=== PATIENT | female | born 1970 ===

== ENCOUNTER 2017-08-04 12:22 | Emergency (ER) | payer MEDICARE, OTHER ==
[2017-08-04 12:22] VITALS: BMI 33.2
[2017-08-04 13:02] VITALS: RESP 18; TEMP 98.2; O2SAT 99
[2017-08-04] MEDS ORDERED: DiphenhydrAMINE 50 mg/ml Inj IVP STA (13:27)
[2017-08-04] MEDS ORDERED: Promethazine 25 MG in Sodium Chloride 0.9% 50 ML IVPB STA (13:28)
--- NOTE | 2017-08-04 13:30 | ED PDOC ---
HPI: Headache Time Seen by Provider: 08/04/17 13:04 Chief Complaint (Nursing): Headache Chief Complaint (Provider): MCGUIRE History Per: Patient History/Exam Limitations: no limitations Additional Complaint(s): Pt reports frontal MCGUIRE X 1 week, constant, not relieved with Aleve and Tramadol at home. Also c/o intermittent SOB that resolves on its own. Denies fever, CP , palpitations, visual changes, nausea, vomiting, abdominal pain, paresthesias, weakness. - Risk Factors SAH Risk Factors: Neg: Sudden Onset Of Pain, Worst Headache Of Life Past Medical History Reviewed: Nursing Documentation, Vital Signs Vital Signs: Last Vital Signs Temp 98.2 F 08/04/17 12:59 Pulse 80 08/04/17 12:59 Resp 18 08/04/17 12:59 BP 144/86 08/04/17 12:59 Pulse Ox 99 08/04/17 12:59 - Medical History PMH: Anemia, HTN, Kidney Stones (passes it in urine) - Family History Family History: States: Unknown Family Hx - Social History Current smoker - smoking cessation education provided: No Alcohol: None - Home Medications Home Medications: Ambulatory Orders Medication Instructions Recorded Amlodipine Besylate/Benazepril 1 cap PO DAILY 10/13/15 [Lotrel 10-20 mg Capsule] Ciprofloxacin/Dexamethasone 4 drop AU BID 10/13/15 [Ciprodex Otic] Desvenlafaxine Succinate [Pristiq 50 mg PO DAILY 10/13/15 ER] Diclofenac Sodium [Voltaren] 1 appl TOP QID PRN 10/13/15 Meclizine [Meclizine*] 25 mg PO TID 10/13/15 MetFORMIN [glucoPHAGE] 1,000 mg PO BID 10/13/15 Naproxen [Naprosyn] 500 mg PO Q12H PRN 10/13/15 Naproxen [Naprosyn] 500 mg PO BID PRN #15 tablet 08/04/17 - Allergies Allergies/Adverse Reactions: Allergies Allergy/AdvReac Type Severity Reaction Status Date / Time tramadol AdvReac NAUSEA Verified 09/27/15 11:31 Review of Systems Constitutional: Negative for: Fever, Chills Eyes: Negative for: Vision Change Cardiovascular: Negative for: Chest Pain, Palpitations Respiratory: Positive for: Shortness of Breath. Negative for: Cough Gastrointestinal: Negative for: Nausea, Vomiting, Abdominal Pain, Diarrhea Genitourinary Female: Negative for: Dysuria, Hematuria Musculoskeletal: Negative for: Neck Pain, Back Pain Skin: Negative for: Rash, Lesions Neurological: Positive for: Headache. Negative for: Weakness, Numbness, Incoordination, Change in Speech, Confusion, Seizures, Altered Mental Status, Dizziness Physical Exam - Reviewed Nursing Documentation Reviewed: Yes Vital Signs Reviewed: Yes - Physical Exam Appears: Positive for: Well, No Acute Distress Head Exam: Positive for: ATRAUMATIC, NORMAL INSPECTION Skin: Positive for: Normal Color, Warm, Dry Eye Exam: Positive for: Normal appearance, EOMI, PERRL Neck: Positive for: Normal, Painless ROM, Supple Cardiovascular/Chest: Positive for: Regular Rate, Rhythm Respiratory: Positive for: Normal Breath Sounds. Negative for: Rales, Rhonchi, Wheezing Gastrointestinal/Abdominal: Positive for: Normal Exam, Bowel Sounds, Soft Back: Positive for: Normal Inspection. Negative for: L CVA Tenderness, R CVA Tenderness Extremity: Positive for: Normal ROM Neurologic/Psych: Positive for: Alert, resource technician II-XII, Oriented. Negative for: Motor/Sensory Deficits, Aphasia, Facial Droop - Laboratory Results Result Diagrams: 08/04/17 13:45 08/04/17 13:45 - ECG Interpretation Of ECG: NSR @ 71, no ST-T changes. O2 Sat by Pulse Oximetry: 99 Pulse Ox Interpretation: Normal Medical Decision Making Medical Decision Makin yo female with MCGUIRE and intermittent SOB. - labs - EKG - CXR - CT head - Benadryl - Phenergan Disposition - Clinical Impression Clinical Impression: Headache - Disposition Referrals: Kulwant Chavis MD [Family Provider] - [facility] [Outside] Disposition: Routine/Home Disposition Time: 17:10 Condition: STABLE Prescriptions: Naproxen [Naprosyn] 500 mg PO BID PRN #15 tablet PRN Reason: Pain, Moderate (4-7) Instructions: Headache, Adult Forms: [facility] (Taiwanese) Print Language: STATELESS
[2017-08-04 13:50] LABS: BASO # 0.1 K/uL (0.0-0.2); BASO % 1.1 % (0.0-2.0); EOS # 0.2 K/uL (0.0-0.7); EOS % 2.2 % (0.0-4.0); HEMOGLOBIN 13.3 g/dL (12.0-16.0); LYMPH # 2.7 K/uL (1.0-4.3); LYMPH % 30.4 % (20.0-40.0); MEAN CELL VOLUME 88.8 fl (81.0-99.0); MEAN CORPUSCULAR HEMOGLOBIN 29.8 pg (27.0-31.0); MEAN CORPUSCULAR HGB CONC 33.5 g/dL (33.0-37.0); MEAN PLATELET VOLUME 9.4 fl (7.2-11.7); MONO # 0.6 K/uL (0.0-0.8); MONO % 6.7 % (0.0-10.0); NEUT # 5.3 K/uL (1.8-7.0); NEUT % 59.6 % (50.0-75.0); RBC 4.46 Mil/uL (3.80-5.20); WHITE BLOOD COUNT 8.8 K/uL (4.8-10.8)
[2017-08-04 13:59] LABS: ALB/GLOB RATIO 1.1 (1.0-2.1); ALBUMIN 4.1 g/dL (3.5-5.0); ALT/SGPT 30 U/L (9-52); AST/SGOT 15 U/L (14-36); BLOOD UREA NITROGEN 16 mg/dl (7-17); CALCIUM 9.5 mg/dL (8.4-10.2); GFR AFRICAN-AMERICAN > 60; GFR NON-AFRICAN AMERICAN > 60
[2017-08-04] MEDS ORDERED: DiphenhydrAMINE 50 mg/ml Inj ONE (14:00)
[2017-08-04 14:01] LABS: PROTHROMBIN TIME 11.2 Seconds (9.8-13.1)
[2017-08-04 14:02] LABS: PARTIAL THROMBOPLASTIN TIME 24.6 Seconds (25.6-37.1)
[2017-08-04 14:04] LABS: SQUAMOUS EPITHIAL 3 /hpf (0-5); URINE BACTERIA FEW (<OCC); URINE BILIRUBIN NEGATIVE (NEGATIVE); URINE BLOOD NEGATIVE (NEGATIVE); URINE CLARITY CLOUDY (Clear); URINE COLOR YELLOW (YELLOW); URINE GLUCOSE (UA) NEG (Normal); URINE LEUKOCYTE ESTERASE TRACE Leu/uL (Negative); URINE PROTEIN NEGATIVE (NEGATIVE); URINE UROBILINOGEN 0.2-1.0 mg/dL (0.2-1.0)
--- NOTE | 2017-08-04 14:11 | RAD ---
HISTORY: SOB COMPARISON: Chest radiograph dated 11/11/2008. TECHNIQUE: Chest PA and lateral FINDINGS: LUNGS: No active pulmonary disease. PLEURA: No significant pleural effusion identified. No pneumothorax apparent. CARDIOVASCULAR: Normal. OSSEOUS STRUCTURES: No significant abnormalities. VISUALIZED UPPER ABDOMEN: Normal. OTHER FINDINGS: None. IMPRESSION: No active disease.
--- NOTE | 2017-08-04 15:58 | CT ---
PROCEDURE: CT HEAD WITHOUT CONTRAST. HISTORY: MCGUIRE COMPARISON: CT head dated 10/13/2015. TECHNIQUE: Axial computed tomography images were obtained through the head/brain without intravenous contrast. Radiation dose: Total exam DLP = 813.9 mGy-cm. This CT exam was performed using one or more of the following dose reduction techniques: Automated exposure control, adjustment of the mA and/or kV according to patient size, and/or use of iterative reconstruction technique. FINDINGS: HEMORRHAGE: No intracranial hemorrhage. BRAIN: No mass effect or edema. No atrophy or chronic microvascular ischemic changes. VENTRICLES: Unremarkable. No hydrocephalus. CALVARIUM: Unremarkable. PARANASAL SINUSES: Unremarkable as visualized. No significant inflammatory changes. MASTOID AIR CELLS: Unremarkable as visualized. No inflammatory changes. OTHER FINDINGS: None. IMPRESSION: No acute intracranial pathology.
[2017-08-04 17:38] VITALS: BP 137/80; PULSE 78
--- NOTE | 2017-08-05 10:25 | CARD ---
APPROVED REPORT EKG Measurement Heart [id number] <Conclusion> Normal sinus rhythm Normal ECG
== END 2017-08-04 17:30 | disposition home or self-care (01) ==
LOC: H.ER 12:22
DX: R51 Headache (principal); N39.0 Urinary tract infection, site not specified; I10 Essential (primary) hypertension; Z79.84 Long term (current) use of oral hypoglycemic drugs; Z87.442 Personal history of urinary calculi
CPT/HCPCS: 70450; 71046; 80053; 81003; 81025; 85025; 85378; 85610; 85730; 87086; 87181; 93005; 96365; 96375; 99285; J1200; J2550

== ENCOUNTER 2018-06-07 16:58 | Inpatient (IN) | payer MEDICARE, OTHER ==
[2018-06-07 16:58] VITALS: BMI 33.2
--- NOTE | 2018-06-07 18:20 | ED PDOC ---
HPI: Abdomen Chief Complaint (Provider): abdominal pain, burning with urination History Per: Patient Onset/Duration Of Symptoms: Days (2 weeks) Outside of [place] travel?: Yes Other Location:: [facility] Current Symptoms Are (Timing): Still Present Pain Scale Rating Of: 7 Location Of Pain/Discomfort: LLQ Quality Of Discomfort: Sharp, Cramping, "Pain" Associated Symptoms: Fever, Chills, Nausea, Loss Of Appetite, Constipation. denies: Vomiting, Diarrhea Exacerbating Factors: None Additional Complaint(s): 47 yo F with history of HTN, DM2, colitis, presenting to ED for evaluation of abdominal pain. Pain started about 10-14 days ago but has gotten worse since the past few days. She also reports increased frequency of urination and burning with urination. She returned from a trip to [place] last week, and reports she went to her PMD Dr. Chavis 4 days ago, who started her on Cipro and Flagyl for a suspected colitis, but medications have not been helpful in alleviating her symptoms. Associated symptoms: subjective fever last week, nausea, constipation; no vomiting. Denies shortness of breath, chest pain, epigastric pain. Pt was sent by her PMD to get bloodwork done, as well as urine culture and CT scan of abdomen and pelvis; results are currently available in visits from 06/04 and 06/07 in [facility]. URINE culture from 06/04 positive for ES[address] E. coli CT Abd/Pelvis Impression 06/07/18: Gastric bypass surgery. No evidence dehiscence. No obstruction. No hiatal hernia. Mural thickening of a segment of jejunum in the left abdomen common nonspecific. There is some fluid or stranding adjacent to this loop of jejunum raising suspicion of an infectious or inflammatory process. There is no generalized enteritis. No other acute abnormality. Also reported in CT: 1.7 cm left sided ovarian cyst. Past Med hx: HTN, DM2 (A1c done 06/04/18 8.0), colitis, nephrolithiasis Past Surg hx: gastric bypass, hysterectomy Social: denies tobacco alcohol drugs Fam hx: noncontributory Allergies: nkda (tramadol listed but denies allergy, takes tramadol) Meds: Amlodipine 10 mg daily Benazepril 40 mg daily Tramadol 50 mg Q6 PRN; patient has listed allergy in EMR but denies allergic reactions, states it makes her nauseous sometimes Metformin 1000 BID (has not taken in 3 days in anticipation of CT scan today) Recently started cipro and flagyl this week Abnormal Vaginal Bleeding: No <Lisy Mejia - Last Filed: 06/07/18 18:54> <Ever Holt - Last Filed: 06/08/18 10:59> Time Seen by Provider: 06/07/18 17:45 Chief Complaint (Nursing): Abdominal Pain Supervising Attending Note - Supervising Attending Note The Documented history was done by the: Physician Assistant Business Manager, Attending Physician The documented physical exam was done by the: Physician Assistant Business Manager, Attending Physician The documented procedures were done by the: Physician Assistant Business Manager, Attending Physician - Attestation: I have personally seen and examined this patient.: Yes I have fully participated in the care of the patient.: Yes I have reviewed all pertinent clinical information: Yes <Ever Holt - Last Filed: 06/08/18 10:59> Past Medical History Vital Signs: Last Vital Signs Temp 98.6 F 06/07/18 17:16 Pulse 71 06/07/18 17:16 Resp 18 06/07/18 17:16 BP 127/82 06/07/18 17:16 Pulse Ox 100 06/07/18 17:16 - Medical History PMH: Anemia, HTN, Kidney Stones Other PMH: colitis - Surgical History Other surgeries: gastric bypass; hysterectomy - Family History Family History: States: Unknown Family Hx - Social History Alcohol: None Drugs: Denies <Lisy Mejia - Last Filed: 06/07/18 18:54> Reviewed: Historical Data, Nursing Documentation, Vital Signs Vital Signs: Last Vital Signs Temp 98.5 F 06/08/18 10:08 Pulse 74 06/08/18 10:08 Resp 14 06/08/18 10:08 BP 105/69 06/08/18 10:08 Pulse Ox 100 06/08/18 10:05 <Ever Holt - Last Filed: 06/08/18 10:59> - Home Medications Home Medications: Ambulatory Orders Medication Instructions Recorded RX: MetFORMIN [glucoPHAGE] 1,000 mg PO BID 10/13/15 Benazepril HCl [Lotensin] 40 mg PO DAILY 06/07/18 Ciprofloxacin [Cipro] 500 mg PO BID 06/07/18 RX: Metronidazole 500 mg PO Q8 06/07/18 RX: amLODIPine [Norvasc] 10 mg PO DAILY 06/07/18 Tramadol HCl [Ultram] 50 mg PO Q6 06/07/18 - Allergies Allergies/Adverse Reactions: Allergies Allergy/AdvReac Type Severity Reaction Status Date / Time tramadol AdvReac NAUSEA Verified 06/07/18 17:23 Review of Systems Cardiovascular: Negative for: Chest Pain Respiratory: Negative for: Cough, Shortness of Breath Gastrointestinal: Positive for: Nausea, Abdominal Pain, Constipation. Negative for: Vomiting, Diarrhea Genitourinary Female: Positive for: Dysuria, Frequency, Pelvic Pain <Lisy Mejia - Last Filed: 06/07/18 18:54> ROS Statement: Except As Marked, All Systems Reviewed And Found Negative <Ever Holt - Last Filed: 06/08/18 10:59> Physical Exam - Physical Exam Appears: Positive for: Non-toxic Head Exam: Positive for: ATRAUMATIC, NORMAL INSPECTION Skin: Positive for: Normal Color, Warm, Dry Eye Exam: Positive for: Normal appearance, EOMI Neck: Positive for: Painless ROM Cardiovascular/Chest: Positive for: Regular Rate, Rhythm. Negative for: Murmur Respiratory: Positive for: Normal Breath Sounds. Negative for: Respiratory Distress Gastrointestinal/Abdominal: Positive for: Bowel Sounds, Soft, Tenderness (LLQ and suprapubic) Back: Positive for: Normal Inspection Extremity: Positive for: Normal ROM. Negative for: Deformity Neurologic/Psych: Positive for: Alert, Oriented <Lisy Mejia - Last Filed: 06/07/18 18:54> - Reviewed Nursing Documentation Reviewed: Yes Vital Signs Reviewed: Yes <Ever Holt - Last Filed: 06/08/18 10:59> - Laboratory Results Result Diagrams: 06/07/18 18:22 - ECG O2 Sat by Pulse Oximetry: 100 <Lsiy Mejia - Last Filed: 06/07/18 18:54> - Laboratory Results Result Diagrams: 06/07/18 18:22 06/07/18 18:22 Lab Results: Total Bilirubin 0.2 mg/dl (0.2-1.3) 06/07/18 18:22 AST 20 U/L (14-36) 06/07/18 18:22 ALT 21 U/L (9-52) 06/07/18 18:22 Alkaline Phosphatase 69 U/L (38-126) 06/07/18 18:22 Total Protein 8.1 G/DL (6.3-8.2) 06/07/18 18:22 Albumin 4.6 g/dL (3.5-5.0) 06/07/18 18:22 Globulin 3.5 gm/dL (2.2-3.9) 06/07/18 18:22 Albumin/Globulin Ratio 1.3 (1.0-2.1) 06/07/18 18:22 <Ever Holt - Last Filed: 06/08/18 10:59> Medical Decision Making Medical Decision Makin yo F with hx HTN, DM2, colitis, with LLQ and suprabupic abdominal pain, with ESBL E. coli UTI from urine culture 06/04/18 and L sided ovarian cyst. CBC, CMP, Urine culture done on 06/04 Plan - Repeat CBC - Repeat CMP - Repeat urine culture, Udip - Blood cultures x2 - Transvaginal u/s - Meropenem 1 dose - ID consult Pt to be admitted to hospitalist service; spoke w/ Dr. Aguirre for admission. All above discussed w/ Dr. Holt. <Lisy Mejia - Last Filed: 06/07/18 18:54> Disposition - Patient ED Disposition Is Patient to be Admitted: Yes - Disposition Disposition Time: 18:49 <Lisy Mejia - Last Filed: 06/07/18 18:54> Discussed With : Funmilayo Aguirre Doctor Will See Patient In The: Hospital Counseled Patient/Family Regarding: Studies Performed, Diagnosis - Pt Status Changed To: Hospital Disposition Of: Inpatient - Admit Certification Admit to Inpatient:: After my assessment, the patient will require hospital ization for at least two midnights. This is because of the severity of symptoms shown, intensity of services needed, and/or the medical risk in this patient being treated as an outpatient. - POA Present On Arrival: None <Ever Holt - Last Filed: 06/08/18 10:59> - Clinical Impression Clinical Impression: UTI (urinary tract infection), UTI due to extended-spectrum beta lactamase (ESBL) producing Escherichia coli - Disposition Condition: STABLE
[2018-06-07] MEDS ORDERED: Meropenem 1 GM in Sodium Chloride 0.9% 100 ML IVPB ONE (18:24)
[2018-06-07 18:30] LABS: BASO # 0.1 K/uL (0.0-0.2); EOS # 0.2 K/uL (0.0-0.7); EOS % 2.9 % (0.0-4.0); HEMOGLOBIN 12.9 g/dL (12.0-16.0); LYMPH # 2.6 K/uL (1.0-4.3); LYMPH % 39.9 % (20.0-40.0); MEAN CELL VOLUME 86.4 fl (81.0-99.0); MEAN CORPUSCULAR HGB CONC 32.4 g/dL (33.0-37.0); MEAN PLATELET VOLUME 9.6 fl (7.2-11.7); MONO # 0.4 K/uL (0.0-0.8); MONO % 5.9 % (0.0-10.0); NEUT # 3.3 K/uL (1.8-7.0); NEUT % 50.3 % (50.0-75.0); RBC 4.59 Mil/uL (3.80-5.20); RED CELL DISTRIBUTION WIDTH 14.1 % (11.5-14.5); WHITE BLOOD COUNT 6.6 K/uL (4.8-10.8)
[2018-06-07 18:53] LABS: ALB/GLOB RATIO 1.3 (1.0-2.1); ALBUMIN 4.6 g/dL (3.5-5.0); ALT/SGPT 21 U/L (9-52); AST/SGOT 20 U/L (14-36); BLOOD UREA NITROGEN 18 mg/dl (7-17); CALCIUM 9.8 mg/dL (8.4-10.2); GFR NON-AFRICAN AMERICAN > 60
--- NOTE | 2018-06-07 18:55 | US ---
Date of service: 06/07/2018 HISTORY: LLQ pain, left sided ovarian cyst Relevant surgical history: Prior hysterectomy approximately 2 years ago. COMPARISON: 08/18/2017. TECHNIQUE: Transvaginal only. Real -time technique with 2D, duplex and color Doppler FINDINGS: Prior hysterectomy, no uterine remnant detected. CERVIX: No cervical abnormality identified. RIGHT OVARY: Measures 1.7 x 2.2 x 2.2 cm. No solid mass. Normal flow. LEFT OVARY: Measures 1.9 x 2.9 x 2.7 cm. No solid mass. Normal flow. Simple cyst 1.2 x 1.9 x 1.7 cm FREE FLUID: No significant free fluid noted. OTHER FINDINGS: None. IMPRESSION: Status post hysterectomy. Unremarkable right adnexa. Simple cyst left adnexa.
--- NOTE | 2018-06-07 19:57 | CP.PCM.HP ---
<Mary Hampton - Last Filed: 06/07/18 22:41> History of Present Illness - History of Present Illness History of Present Illness: 47 yo F with history of HTN, DM2, colitis, presenting to ED for evaluation of abdominal pain. Pain started about 10-14 days ago but has gotten worse since the past few days. She also reports increased frequency of urination and burning with urination x 2 weeks. She returned from a trip to [place] last week, and reports she went to her PMD Dr. Chavis 4 days ago, who started her on Cipro and Flagyl for a suspected colitis, but medications have not been helpful in alleviating her symptoms. Associated symptoms: subjective fever last week, and nausea; no vomiting. Denies shortness of breath, chest pain, epigastric pain. ROS: + Constipation, + Rectal pain, last BM 4 days ago Pt was sent by her PMD to get bloodwork done, as well as urine culture and CT scan of abdomen and pelvis; results are currently available in [facility]. URINE culture from 06/[address] positive [address] CT Abd/Pelvis Impression 06/07/18: Gastric bypass surgery. No evidence dehiscence. No obstruction. No hiatal hernia. Mural thickening of a segment of jejunum in the left abdomen common nonspecific. There is some fluid or stranding adjacent to this loop of jejunum raising suspicion of an infectious or inflammatory process. There is no generalized enteritis. No other acute abnormality. Also reported in CT: 1.7 cm left sided ovarian cyst. Past Med hx: HTN, DM2 (A1c done 06/04/18 8.0), colitis, nephrolithiasis Past Surg hx: gastric bypass, hysterectomy Social: denies tobacco alcohol drugs Fam hx: noncontributory Allergies: nkda (tramadol listed but denies allergy, takes tramadol) Meds: Amlodipine 10 mg daily Benazepril 40 mg daily Tramadol 50 mg Q6 PRN; patient has listed allergy in EMR but denies allergic reactions, states it makes her nauseous sometimes Metformin 1000 BID (has not taken in 3 days in anticipation of CT scan today) Recently started cipro and flagyl this week Present on Admission - Present on Admission Any Indicators Present on Admission: No Past Patient History - Past Medical History & Family History Past Medical History?: Yes - Past Social History Alcohol: None Drugs: Denies - CARDIAC Hx Hypertension: Yes - NEUROLOGICAL Hx Vertigo: Yes - RENAL Hx Kidney Stones: Yes - ENDOCRINE/METABOLIC Hx Diabetes Mellitus Type 2: Yes - HEMATOLOGICAL/ONCOLOGICAL Hx Anemia: Yes - MUSCULOSKELETAL/RHEUMATOLOGICAL Hx Herniated Disk: Yes (Has had Lumbar Sx X2) Other/Comment: Right knee Sx -Arthroscopy due to Tendon Problems - GASTROINTESTINAL Hx Bowel Surgery: Yes (Gastric By-Pass X 2-2004, 2012) Hx Colitis: Yes Hx Diarrhea: Yes (Claims diarhea with Iron Tabs) - PSYCHIATRIC Hx Substance Use: No - SURGICAL HISTORY Hx Hysterectomy: Yes (08/28/16 [facility] [address]) - ANESTHESIA Hx Anesthesia: Yes Hx Anesthesia Reactions: No Meds Allergies/Adverse Reactions: Allergies Allergy/AdvReac Type Severity Reaction Status Date / Time tramadol AdvReac NAUSEA Verified 06/07/18 17:23 Physical Exam - Constitutional Appears: No Acute Distress - Head Exam Head Exam: NORMAL INSPECTION - Eye Exam Eye Exam: Normal appearance - ENT Exam ENT Exam: Mucous Membranes Moist - Neck Exam Neck exam: Positive for: Full Rom - Respiratory Exam Respiratory Exam: Clear to Auscultation Bilateral. absent: Rales, Wheezes - Cardiovascular Exam Cardiovascular Exam: REGULAR RHYTHM, +S1, +S2. absent: Systolic Murmur - GI/Abdominal Exam GI & Abdominal Exam: Normal Bowel Sounds, Soft, Tenderness (Left lower quadrant). absent: Distended, Guarding, Hernia, Organomegaly, Rigid - Extremities Exam Extremities exam: Positive for: normal inspection - Back Exam Back exam: absent: CVA tenderness (L), CVA tenderness (R) - Neurological Exam Neurological exam: Alert, Oriented x3 - Psychiatric Exam Psychiatric exam: Normal Affect Results - Vital Signs Recent Vital Signs: Last Vital Signs Temp 98.6 F 06/07/18 17:16 Pulse 71 06/07/18 17:16 Resp 18 06/07/18 17:16 BP 127/82 06/07/18 17:16 Pulse Ox 100 06/07/18 18:54 - Labs Result Diagrams: 06/07/18 18:22 06/07/18 18:22 Labs: Laboratory Results - last 24 hr 06/07/18 06/07/18 18:22 18:22 WBC 6.6 RBC 4.59 Hgb 12.9 Hct 39.6 MCV 86.4 MCH 28.0 MCHC 32.4 L RDW 14.1 Plt Count 325 MPV 9.6 Neut % (Auto) 50.3 Lymph % (Auto) 39.9 [place] % (Auto) 5.9 Eos % (Auto) 2.9 Baso % (Auto) 1.0 Neut # (Auto) 3.3 Lymph # (Auto) 2.6 [place] # (Auto) 0.4 Eos # (Auto) 0.2 Baso # (Auto) 0.1 Sodium 138 Potassium 4.3 Chloride 97 L Carbon Dioxide 27 Anion Gap 18 BUN 18 H Creatinine 0.8 Est GFR ( Amer) > 60 Est GFR (Non-Af Amer) > 60 Random Glucose 138 H Calcium 9.8 Total Bilirubin 0.2 AST 20 ALT 21 Alkaline Phosphatase 69 Total Protein 8.1 Albumin 4.6 Globulin 3.5 Albumin/Globulin Ratio 1.3 Assessment & Plan - Assessment and Plan (Free Text) Assessment: 47 yo F with history of HTN, DM2, "Colitis", presenting to ED for evaluation of abdominal pain, dysuria, and subjective fevers, found to have recent UCx with ESBL E.Coli. #UTI w/ ESBL E.Coli from Ucx (06/04) -No fever or leukocytosis -Received STAT dose of Meropenem in ED -Will continue Meropenem Q8 upon approval from ID -Repeat Ucx and Bcx sent -Tylenol and Torodol prn for pain -ID consulted, Dr. Rae #Constipation -Bloating w/ colicky abdominal pain, active bowel sounds on exam -Last BM 4 days ago, passing flatus, normal bowel sounds -W/ rectal pain, may be stool burden in rectum -Glycerin suppository prn. #Colitis -Pt reports long hx of "colitis" diagnosed by Colonoscopy, unclear if it is Ulcerative Colitis, states she cannot afford the medication so does not take anything -Currently does not have any diarrhea, bloody stools or concern for UC flare or infectious colitis -CT ruled out colitis, will d/c Cipro and Flagyl HTN -Normotensive -Takes Amlodipine 10mg and Benazapril 40 Benazapril at home; Will continue w/ appropriate BP parameters DM -Will hold Metformin today as pt just received IV contrast -Accuchecks ACHS -Hypoglycemic protocol -Low Insulin Sliding Scale Diet -Regular DVT ppx -SCD -Encourage Ambulation -Pharmacological ppx not indicated as per Joselin score Discussed case with Dr. Timothy Hampton, PGY2 <Funmilayo Aguirre - Last Filed: 06/09/18 15:28> Results - Vital Signs Recent Vital Signs: Last Vital Signs Temp 98.4 F 06/09/18 12:49 Pulse 71 06/09/18 14:18 Resp 20 06/09/18 12:49 BP 103/68 06/09/18 14:18 Pulse Ox 96 06/09/18 12:49 - Labs Result Diagrams: 06/09/18 04:30 06/09/18 04:30 Labs: Laboratory Results - last 24 hr 06/08/18 06/09/18 06/09/18 21:43 04:30 04:30 WBC 5.4 RBC 4.17 Hgb 11.9 L Hct 35.7 MCV 85.6 MCH 28.5 MCHC 33.3 RDW 14.8 H Plt Count 290 Sodium 140 Potassium 4.3 Chloride 102 Carbon Dioxide 26 Anion Gap 16 BUN 22 H Creatinine 0.8 Est GFR ( Amer) > 60 Est GFR (Non-Af Amer) > 60 POC Glucose (mg/dL) 111 H Random Glucose 148 H Calcium 8.8 06/09/18 06/09/18 06:18 11:37 WBC RBC Hgb Hct MCV MCH MCHC RDW Plt Count Sodium Potassium Chloride Carbon Dioxide Anion Gap BUN Creatinine Est GFR ( Amer) Est GFR (Non-Af Amer) POC Glucose (mg/dL) 206 H 137 H Random Glucose Calcium Attending/Attestation - Attestation I have personally seen and examined this patient.: Yes I have fully participated in the care of the patient.: Yes I have reviewed all pertinent clinical information: Yes Notes (Text): 06/09/18 15:27 Agree with findings and plan as above.
[2018-06-07] MEDS ORDERED: Morphine 4 MG/ML VIAL IVP ONE (22:03)
[2018-06-07] MEDS ORDERED: Morphine 4 MG/ML VIAL ONE (22:11)
[2018-06-07] MEDS ORDERED: Glucagon Recombinant 1 mg Inj IM PRN (23:38)
[2018-06-07] MEDS ORDERED: Dextrose 50% SYRINGE Inj (50 ml) IV PRN (23:38)
[2018-06-08] MEDS ORDERED: Meropenem 1 GM in Sodium Chloride 0.9% 100 ML IVPB ONE (05:56)
[2018-06-08] MEDS ORDERED: POLYETHYLENE GLYCOL 3350 17 GM/Dose PACKET PO ONE (08:25)
[2018-06-08] MEDS: Insulin Regular 100 units/ml SC SCH ×4 (08:30→22:15)
[2018-06-08] MEDS ORDERED: BENAZEPRIL HCL 40 MG PO SCH (09:00)
--- NOTE | 2018-06-08 13:09 | CP.PCM.PN ---
Subjective - Date & Time of Evaluation Date of Evaluation: 06/08/18 Time of Evaluation: 10:30 - Subjective Subjective: Pt is afebrile complains of left lower abdominal pain sl dysuria denies nausea + constipation no CP no SOB Objective - Vital Signs/Intake and Output Vital Signs (last 24 hours): Temp Pulse Resp BP Pulse Ox 98.5 F 68 16 113/57 L 98 06/08/18 10:08 06/08/18 10:55 06/08/18 10:55 06/08/18 10:55 06/08/18 10:55 - Medications Medications: Current Medications Acetaminophen (Tylenol 325mg Tab) 650 mg PO Q6 PRN PRN Reason: Pain, Mild (1-3) Amlodipine Besylate (Norvasc) 10 mg PO DAILY [facility] Last Admin: 06/08/18 09:30 Dose: 10 mg Dextrose (Dextrose 50% Inj) 0 ml IV STAT PRN; Protocol PRN Reason: Hypoglycemia Protocol Dextrose (Glutose 15) 0 gm PO ONCE PRN; Protocol PRN Reason: Hypoglycemia Protocol Docusate Sodium (Colace) 100 mg PO BID [facility] Last Admin: 06/08/18 10:49 Dose: 100 mg Glucagon (Glucagen Diagnostic Kit) 0 mg IM STAT PRN; Protocol PRN Reason: Hypoglycemia Protocol Insulin Human Regular (Humulin R) 0 units SC [facility]; Protocol Last Admin: 06/08/18 12:00 Dose: Not Given Ketorolac Tromethamine (Toradol) 30 mg IVP Q6 PRN PRN Reason: Pain, severe (8-10) Last Admin: 06/07/18 20:47 Dose: 30 mg Ketorolac Tromethamine (Toradol) 15 mg IVP Q6 PRN PRN Reason: Pain, moderate (4-7) Last Admin: 06/08/18 09:55 Dose: 15 mg Lisinopril (Zestril) 40 mg PO DAILY [facility] Last Admin: 06/08/18 09:54 Dose: 40 mg - Labs Labs: 06/07/18 18:22 06/07/18 18:22 - Constitutional Appears: Non-toxic, No Acute Distress - Head Exam Head Exam: ATRAUMATIC, NORMAL INSPECTION, NORMOCEPHALIC - Eye Exam Eye Exam: EOMI, Normal appearance, PERRL Pupil Exam: NORMAL ACCOMODATION - ENT Exam ENT Exam: Mucous Membranes Moist, Normal External Ear Exam - Neck Exam Neck Exam: Full ROM. absent: Meningismus - Respiratory Exam Respiratory Exam: NORMAL BREATHING PATTERN. absent: Respiratory Distress - Cardiovascular Exam Cardiovascular Exam: REGULAR RHYTHM, +S1, +S2 - GI/Abdominal Exam GI & Abdominal Exam: Soft, Tenderness (left lower quadrant), Normal Bowel Sounds - Extremities Exam Extremities Exam: Full ROM, Normal Capillary Refill, Normal Inspection - Back Exam Back Exam: Full ROM. absent: CVA tenderness (L), CVA tenderness (R) - Neurological Exam Neurological Exam: Alert, Awake, CN II-XII Intact, Oriented x3 Neuro motor strength exam: Left Upper Extremity: 5, Right Upper Extremity: 5, Left Lower Extremity: 5, Right Lower Extremity: 5 - Psychiatric Exam Psychiatric exam: Normal Affect, Normal Mood - Skin Skin Exam: Dry, Normal Color, Warm Assessment and Plan (1) UTI due to extended-spectrum beta lactamase (ESBL) producing Escherichia coli Status: Acute (2) Colitis Status: Acute (3) Constipation Status: Chronic (4) DM type 2 (diabetes mellitus, type 2) Status: Chronic (5) HTN (hypertension) Status: Chronic - Assessment and Plan (Free Text) Assessment: (1) UTI due to extended-spectrum beta lactamase (ESBL) producing Escherichia coli Status: Acute start Meropenem ID consult may need Home IV Infusion to complete treatment (2) Colitis Status: Acute CT scan of abd done on 06/04 showed stranding at the jejunum area cont Meropenem, add PO Flagyl (3) Constipation Status: Chronic Dulcolax Miralax (4) DM type 2 (diabetes mellitus, type 2) Status: Chronic Accucheck with coverage restart Metformin in am (5) HTN (hypertension) Status: Chronic cont Norvasc and Lisinopril
[2018-06-08] MEDS: Meropenem 1 GM in Sodium Chloride 0.9% 100 ML IVPB SCH (17:47)
[2018-06-09] MEDS: Meropenem 1 GM in Sodium Chloride 0.9% 100 ML IVPB SCH ×3 (00:13→16:41)
[2018-06-09 06:15] LABS: HEMOGLOBIN 11.9 g/dL (12.0-16.0); MEAN CELL VOLUME 85.6 fl (81.0-99.0); MEAN CORPUSCULAR HEMOGLOBIN 28.5 pg (27.0-31.0); MEAN CORPUSCULAR HGB CONC 33.3 g/dL (33.0-37.0); RBC 4.17 Mil/uL (3.80-5.20); RED CELL DISTRIBUTION WIDTH 14.8 % (11.5-14.5); WHITE BLOOD COUNT 5.4 K/uL (4.8-10.8)
[2018-06-09 06:32] LABS: BLOOD UREA NITROGEN 22 mg/dl (7-17); CALCIUM 8.8 mg/dL (8.4-10.2); GFR NON-AFRICAN AMERICAN > 60
[2018-06-09] MEDS: Insulin Regular 100 units/ml SC SCH ×4 (06:42→22:03)
--- NOTE | 2018-06-09 11:09 | CP.PCM.PN ---
Subjective - Date & Time of Evaluation Date of Evaluation: 06/09/18 Time of Evaluation: 11:07 - Subjective Subjective: patient complaining of same LLQ pain this AM also reports constipation mild tenderness on exam will give bowel regimen and reeval hd stable nad Objective - Vital Signs/Intake and Output Vital Signs (last 24 hours): Temp Pulse Resp BP Pulse Ox 98.5 F 98 H 20 102/66 94 L 06/09/18 08:44 06/09/18 09:23 06/09/18 08:44 06/09/18 09:23 06/09/18 08:44 - Medications Medications: Current Medications Acetaminophen (Tylenol 325mg Tab) 650 mg PO Q6 PRN PRN Reason: Pain, Mild (1-3) Amlodipine Besylate (Norvasc) 10 mg PO DAILY [facility] Last Admin: 06/08/18 09:30 Dose: 10 mg Dextrose (Dextrose 50% Inj) 0 ml IV STAT PRN; Protocol PRN Reason: Hypoglycemia Protocol Dextrose (Glutose 15) 0 gm PO ONCE PRN; Protocol PRN Reason: Hypoglycemia Protocol Docusate Sodium (Colace) 100 mg PO BID [facility] Last Admin: 06/09/18 09:11 Dose: 100 mg Glucagon (Glucagen Diagnostic Kit) 0 mg IM STAT PRN; Protocol PRN Reason: Hypoglycemia Protocol Meropenem 1 gm/ Sodium (Chloride) 100 mls @ 100 mls/hr IVPB Q8 [facility]; Protocol Last Admin: 06/09/18 09:12 Dose: 100 mls/hr Insulin Human Regular (Humulin R) 0 units SC ACHS [facility]; Protocol Last Admin: 06/09/18 06:42 Dose: 2 u Ketorolac Tromethamine (Toradol) 30 mg IVP Q6 PRN PRN Reason: Pain, severe (8-10) Last Admin: 06/08/18 22:19 Dose: 30 mg Ketorolac Tromethamine (Toradol) 15 mg IVP Q6 PRN PRN Reason: Pain, moderate (4-7) Last Admin: 06/09/18 09:28 Dose: 15 mg Lactulose (Enulose) 20 gm PO DAILY [facility] Last Admin: 06/09/18 10:34 Dose: 20 gm Lisinopril (Zestril) 20 mg PO DAILY [facility] Last Admin: 06/09/18 09:23 Dose: 20 mg Metronidazole (Flagyl) 500 mg PO Q8 [facility]; Protocol Last Admin: 06/09/18 09:11 Dose: 500 mg - Labs Labs: 06/09/18 04:30 06/09/18 04:30 - Constitutional Appears: Non-toxic, No Acute Distress - Head Exam Head Exam: ATRAUMATIC, NORMOCEPHALIC - Eye Exam Eye Exam: EOMI, Normal appearance, PERRL - ENT Exam ENT Exam: Mucous Membranes Moist, Normal Oropharynx - Neck Exam Neck Exam: Full ROM, Normal Inspection - Respiratory Exam Respiratory Exam: Clear to Ausculation Bilateral, NORMAL BREATHING PATTERN - Cardiovascular Exam Cardiovascular Exam: RRR, +S1, +S2 - GI/Abdominal Exam GI & Abdominal Exam: Soft, Tenderness (mild), Normal Bowel Sounds. absent: Organomegaly - Extremities Exam Extremities Exam: Full ROM, Normal Capillary Refill, Normal Inspection - Back Exam Back Exam: absent: CVA tenderness (L), CVA tenderness (R) - Neurological Exam Neurological Exam: Alert, Awake - Psychiatric Exam Psychiatric exam: Normal Affect, Normal Mood - Skin Skin Exam: Dry, Warm Assessment and Plan - Assessment and Plan (Free Text) Plan: 47 year old female PMH HTN DM2 colitis admitted for IV ABX Merrem for ESBL UTI. Patient currently stable, with constipation. (1) UTI due to extended-spectrum beta lactamase (ESBL) producing Escherichia coli Status: Acute start Meropenem ID consult may need Home IV Infusion to complete treatment (2) Colitis Status: Acute CT scan of abd done on 06/04 showed stranding at the jejunum area cont Meropenem, added PO Flagyl (3) Constipation Status: Chronic Dulcolax Miralax added Lactulose still no BM, will give additional lactulose and monitor. (4) DM type 2 (diabetes mellitus, type 2) Status: Chronic Accucheck with coverage restart Metformin (5) HTN (hypertension) Status: Chronic cont Norvasc and Lisinopril
--- NOTE | 2018-06-09 15:54 | CP.PCM.CON ---
History of Present Illness - History of Present Illness History of Present Illness: 47 yo F with history of HTN, DM2, colitis, presenting to ED for evaluation of abdominal pain. Pain started about 10-14 days ago She also reports increased frequency of urination and burning with urination x 2 weeks. She returned from a trip to [place] last week, and reports she went to her PMD Dr. Chavis 4 days ago, who started her on Cipro and Flagyl for a suspected colitis, but medications have not been helpful in alleviating her symptoms. URINE culture from 06/04 positive for ESBL E. coli ID consulted because of this Past Med hx: HTN, DM2 (A1c done 06/04/18 8.0), colitis, nephrolithiasis Past Surg hx: gastric bypass, hysterectomy Social: denies tobacco alcohol drugs Fam hx: noncontributory Allergies: nkda Review of Systems - Review of Systems All systems: reviewed and no additional remarkable complaints except - Constitutional Constitutional: As Per HPI - EENT Eyes: absent: As Per HPI, Blind Spots, Blurred Vision, Change in Vision, Decreased Night Vision, Diplopia, Discharge, Dry Eye, Exophthalmos, Floaters, Irritation, Itchy Eyes, Loss of Peripheral Vision, Pain, Photophobia, Requires Corrective Lenses, Sees Flashes, Spots in Vision, Tunnel Vision, Other Visual Disturbances, Loss of Vision, Other Ears: absent: As Per HPI, Decreased Hearing, Ear Discharge, Ear Pain, Tinnitus, Abnormal Hearing, Disequilibrium, Dizziness, Other Nose/Mouth/Throat: absent: As Per HPI, Epistaxis, Nasal Congestion, Nasal Discharge, Nasal Obstruction, Nasal Trauma, Nose Pain, Post Nasal Drip, Sinus Pain, Sinus Pressure, Bleeding Gums, Change in Voice, Dental Pain, Dry Mouth, Dysphagia, Halitosis, Hoarsness, Lip Swelling, Mouth Lesions, Mouth Pain, Odynophagia, Sore Throat, Throat Swelling, Tongue Swelling, Facial Pain, Neck Pain, Neck Mass, Other - Breasts Breasts: absent: As Per HPI, Change in Shape, Mass, Pain, Nipple Discharge, Nipple Inversion, Skin Changes, Swelling, Other - Cardiovascular Cardiovascular: absent: As Per HPI, Acrocyanosis, Chest Pain, Chest Pain at Rest, Chest Pain with Activity, Claudication, Diaphoresis, Dyspnea, Dyspnea on Exertion, Edema, Irregular Heart Rhythm, Pain Radiating to Arm/Neck/Jaw, Leg Mars ma, Leg Ulcers, Lightheadedness, Orthopnea, Palpitations, Paroxysmal Nocturnal Dyspnea, Pedal Edema, Radiating Pain, Rapid Heart Rate, Slow Heart Rate, Syncope, Other - Respiratory Respiratory: absent: As Per HPI, Cough, Dyspnea, Hemoptysis, Dyspnea on Exertion , Wheezing, Snoring, Stridor, Pain on Inspiration, Chest Congestion, Excessive Mucous Production, Change in Mucous Color, Pain with Coughing, Other - Gastrointestinal Gastrointestinal: As Per HPI, Abdominal Pain - Genitourinary Genitourinary: As Per HPI, Urinary Frequency - Reproductive: Female Reproductive:Female: absent: As Per HPI, Amenorrhea, Amenorrhea/ Control, Currently Menstual, Cycle <21 Days, Cycle >35 Days, Cycle Variable, Menses 1-7 Days, Menses >/= 8 Days, Menses Variable, Cycle > 4 Weeks Between, No Menses for 6 Months, Heavy Menses, Light Menses, Normal Menses, Spotting Between Cycles, S/P Hysterectomy, Menopausal, Post Menopausal, Premenarche, Abnormal Vaginal Bleeding, Dysmenorrhea, Dyspareunia, Genital Lesions, Genital Pruritis, Pelvic Pain, Prolapse Symptoms, Sexual Dysfunction, Vaginal Discharge, Vaginal Dryness, Vaginal Odor, Vaginal Pruritis, Other - Menstruation Menstruation: absent: As Per HPI, Amenorrhea, Amenorrhea/ Control, Currently Menstual, Cycle <21 Days, Cycle >35 Days, Cycle Variable, Menses 1-7 Days, Menses >/= 8 Days, Menses Variable, Cycle > 4 Weeks Between, No Menses for 6 Months, Heavy Menses, Light Menses, Normal Menses, Spotting Between Cycles, S/P Hysterectomy, Menopausal, Post Menopausal, Premenarche, Abnormal Vaginal Bleeding, Dysmenorrhea, Other - Musculoskeletal Musculoskeletal: absent: As Per HPI, Abnormal Gait, Arthralgias, Atrophy, Back Pain, Deformity, Joint Swelling, Limited Range of Motion, Loss of Height, Muscle Cramps, Muscle Weakness, Myalgias, Neck Pain, Numbness, Radiating Pain into Limb, Stiffness, Tingling, Other - Integumentary Integumentary: absent: As Per HPI, Acne, Alopecia, Bleeding Lesions, Change in Hair, Change in Nails, Change in Pigmentation, Changing Lesions, Dry Skin, Erythema, Furuncle, Hirsutism, Lesions, New Lesions, Non-Healing Lesions, Photosensitivity, Pruritus, Rash, Skin Pain, Skin Ulcer, Sores, Striae, Swelling, Unusual Bruising, Wounds, Jaundice, Other - Neurological Neurological: absent: As Per HPI, Abnormal Gait, Abnormal Hearing, Abnormal Movements, Abnormal Speech, Behavioral Changes, Burning Sensations, Confusion, Convulsions, Disequilibrium, Dizziness, Numbness, Focal Weakness, Frequent Falls, Headaches, Lack of Coordination, Loss of Vision, Memory Loss, Paresthesias, Radicular Pain, Restless Legs, Sensory Deficit, Syncope, Tingling, Tremor, Vertigo, Weakness, Other Visual Disturbances, Other - Psychiatric Psychiatric: absent: As Per HPI, Abnormal Sleep Pattern, Anhedonia, Anxiety, Auditory Hallucinations, Behavioral Changes, Change in Appetite, Change in Libido, Confusion, Depression, Difficulty Concentrating, Hallucinations, Homicidal Ideation, Hopelessness, Irritability, Memory Loss, Mood Swings, Panic Attacks, Paranoia, Suicidal Ideation, Visual Hallucinations, Tactile Hallucinations, Other - Endocrine Endocrine: absent: As Per HPI, Change in Body Appearance, Change in Libido, Cold Intolorance, Deepening of Voice, Excessive Sweating, Fatigue, Flushing, Heat Intolorance, Increase in Ring/Shoe/Hat Size, Palpitations, Polydipsia, Polyphagia, Polyuria, Other - Hematologic/Lymphatic Hematologic: absent: As Per HPI, Easy Bleeding, Easy Bruising, Lymphadenopathy, Other Past Patient History - Past Medical History & Family History Past Medical History?: Yes - Past Social History Smoking Status: Never Smoked - CARDIAC Hx Cardiac Disorders: Yes Hx Hypertension: Yes - PULMONARY Hx Respiratory Disorders: Yes - NEUROLOGICAL Hx Vertigo: Yes - RENAL Hx Kidney Stones: Yes - ENDOCRINE/METABOLIC Hx Diabetes Mellitus Type 2: Yes - HEMATOLOGICAL/ONCOLOGICAL Hx Blood Disorders: Yes - MUSCULOSKELETAL/RHEUMATOLOGICAL Hx Falls: No Hx Herniated Disk: Yes (Has had Lumbar Sx X2) Other/Comment: Right knee Sx -Arthroscopy due to Tendon Problems - GASTROINTESTINAL Hx Bowel Surgery: Yes (Gastric By-Pass X 2-2004, 2012) Hx Colitis: Yes Hx Diarrhea: Yes (Claims diarhea with Iron Tabs) - GENITOURINARY/GYNECOLOGICAL Hx Genitourinary Disorders: Yes - PSYCHIATRIC Hx Substance Use: No - SURGICAL HISTORY Hx Hysterectomy: Yes (08/28/16 [facility]) - ANESTHESIA Hx Anesthesia: Yes Hx Anesthesia Reactions: No Meds Allergies/Adverse Reactions: Allergies Allergy/AdvReac Type Severity Reaction Status Date / Time tramadol AdvReac NAUSEA Verified 06/07/18 17:23 - Medications Medications: Current Medications Acetaminophen (Tylenol 325mg Tab) 650 mg PO Q6 PRN PRN Reason: Pain, Mild (1-3) Amlodipine Besylate (Norvasc) 10 mg PO DAILY [facility] Last Admin: 06/09/18 14:18 Dose: 10 mg Dextrose (Dextrose 50% Inj) 0 ml IV STAT PRN; Protocol PRN Reason: Hypoglycemia Protocol Dextrose (Glutose 15) 0 gm PO ONCE PRN; Protocol PRN Reason: Hypoglycemia Protocol Docusate Sodium (Colace) 100 mg PO BID [facility] Last Admin: 06/09/18 09:11 Dose: 100 mg Glucagon (Glucagen Diagnostic Kit) 0 mg IM STAT PRN; Protocol PRN Reason: Hypoglycemia Protocol Meropenem 1 gm/ Sodium (Chloride) 100 mls @ 100 mls/hr IVPB Q8 [facility]; Protocol Last Admin: 06/09/18 09:12 Dose: 100 mls/hr Insulin Human Regular (Humulin R) 0 units SC ACHS [facility]; Protocol Last Admin: 06/09/18 12:37 Dose: Not Given Ketorolac Tromethamine (Toradol) 30 mg IVP Q6 PRN PRN Reason: Pain, severe (8-10) Last Admin: 06/09/18 15:37 Dose: 30 mg Ketorolac Tromethamine (Toradol) 15 mg IVP Q6 PRN PRN Reason: Pain, moderate (4-7) Last Admin: 06/09/18 09:28 Dose: 15 mg Lactulose (Enulose) 20 gm PO DAILY [facility] Last Admin: 06/09/18 10:34 Dose: 20 gm Lisinopril (Zestril) 20 mg PO DAILY [facility] Last Admin: 06/09/18 09:23 Dose: 20 mg Metronidazole (Flagyl) 500 mg PO Q8 [facility]; Protocol Last Admin: 06/09/18 09:11 Dose: 500 mg Physical Exam - Constitutional Appears: Non-toxic, No Acute Distress, Chronically Ill - Head Exam Head Exam: ATRAUMATIC, NORMAL INSPECTION, NORMOCEPHALIC - Eye Exam Eye Exam: PERRL. absent: Scleral icterus Pupil Exam: NORMAL ACCOMODATION - ENT Exam ENT Exam: Mucous Membranes Dry, Normal External Ear Exam, Normal Oropharynx - Neck Exam Neck exam: Negative for: Lymphadenopathy, Thyromegaly - Respiratory Exam Respiratory Exam: Decreased Breath Sounds, Clear to Auscultation Bilateral - Cardiovascular Exam Cardiovascular Exam: REGULAR RHYTHM, +S1, +S2 - GI/Abdominal Exam GI & Abdominal Exam: Diminished Bowel Sounds, Distended, Guarding, Soft. absent: Rebound, Rigid, Tenderness - Rectal Exam Rectal Exam: Deferred - Exam Exam: NORMAL INSPECTION - Extremities Exam Extremities exam: Positive for: pedal pulses present. Negative for: calf tenderness, pedal edema, tenderness - Back Exam Back exam: CVA tenderness (L). absent: CVA tenderness (R), paraspinal tenderness - Neurological Exam Neurological exam: Alert, CN II-XII Intact, Oriented x3, Reflexes Normal - Psychiatric Exam Psychiatric exam: Depressed - Skin Skin Exam: Dry Results - Vital Signs Recent Vital Signs: Last Vital Signs Temp 98.4 F 06/09/18 12:49 Pulse 71 06/09/18 14:18 Resp 20 06/09/18 12:49 BP 103/68 06/09/18 14:18 Pulse Ox 96 06/09/18 12:49 - Labs Result Diagrams: 06/09/18 04:30 06/09/18 04:30 Labs: Laboratory Results - last 24 hr 06/08/18 06/09/18 06/09/18 21:43 04:30 04:30 WBC 5.4 RBC 4.17 Hgb 11.9 L Hct 35.7 MCV 85.6 MCH 28.5 MCHC 33.3 RDW 14.8 H Plt Count 290 Sodium 140 Potassium 4.3 Chloride 102 Carbon Dioxide 26 Anion Gap 16 BUN 22 H Creatinine 0.8 Est GFR ( Amer) > 60 Est GFR (Non-Af Amer) > 60 POC Glucose (mg/dL) 111 H Random Glucose 148 H Calcium 8.8 06/09/18 06/09/18 06:18 11:37 WBC RBC Hgb Hct MCV MCH MCHC RDW Plt Count Sodium Potassium Chloride Carbon Dioxide Anion Gap BUN Creatinine Est GFR ( Amer) Est GFR (Non-Af Amer) POC Glucose (mg/dL) 206 H 137 H Random Glucose Calcium - Imaging and Cardiology CT scan - abdomen Additional comment: CT Abd/Pelvis Impression 06/07/18: Gastric bypass surgery. No evidence dehiscence. No obstruction. No hiatal hernia. Mural thickening of a segment of jejunum in the left abdomen common nonspecific. There is some fluid or stranding adjacent to this loop of jejunum raising suspicion of an infectious or inflammatory process. There is no generalized enteritis. No other acute abnormality. Also reported in CT: 1.7 cm left sided ovarian cyst. Assessment & Plan (1) Colitis Status: Acute (2) UTI (urinary tract infection) Status: Acute (3) UTI due to extended-spectrum beta lactamase (ESBL) producing Escherichia coli Status: Acute (4) DM type 2 (diabetes mellitus, type 2) Status: Chronic (5) HTN (hypertension) Status: Chronic - Assessment and Plan (Free Text) Plan: admitted for UTI has abd pain and tenderness left side unclear if this is secondary to UTI/Pyelo or chronic colitis ? No mention of hydro or pyelo on CT images will repeat U/A duration of rx to be determined
[2018-06-09] MEDS ORDERED: Chlorhexidine Gluconate 1 APPL/PKT TP ONE (21:05)
[2018-06-09 22:35] LABS: SQUAMOUS EPITHIAL 7 /hpf (0-5); URINE BACTERIA RARE (<OCC); URINE BILIRUBIN NEGATIVE (NEGATIVE); URINE BLOOD NEGATIVE (NEGATIVE); URINE CLARITY SLIGHTY-CLOUDY (Clear); URINE COLOR YELLOW (YELLOW); URINE GLUCOSE (UA) NEG (NEGATIVE); URINE HYALINE CAST 0-2 /hpf (0-2); URINE LEUKOCYTE ESTERASE TRACE Leu/uL (Negative); URINE PROTEIN NEGATIVE (NEGATIVE)
[2018-06-10] MEDS: Meropenem 1 GM in Sodium Chloride 0.9% 100 ML IVPB SCH ×2 (01:08→09:38)
[2018-06-10] MEDS ORDERED: Simethicone 80 mg Chewtab PO ONE (01:20)
[2018-06-10] MEDS: Insulin Regular 100 units/ml SC SCH ×2 (06:40→13:02)
[2018-06-10 08:30] VITALS: RESP 20; TEMP 98.1
[2018-06-10 10:14] VITALS: O2SAT 93
[2018-06-10 11:16] VITALS: BP 116/79; PULSE 66
--- NOTE | 2018-06-10 11:37 | CP.PCM.PN ---
Subjective - Date & Time of Evaluation Date of Evaluation: 06/10/18 Time of Evaluation: 09:00 - Subjective Subjective: 47 yo F with history of HTN, DM2, colitis, presenting to ED for evaluation of abdominal pain. Pain started about 10-14 days ago She also reports increased frequency of urination and burning with urination x 2 weeks. She returned from a trip to [place] last week, and reports she went to her PMD Dr. Chavis 4 days ago, who started her on Cipro and Flagyl for a suspected colitis, but medications have not been helpful in alleviating her symptoms. URINE culture from 06/04 positive for ESBL E. coli ID consulted because of this Objective - Vital Signs/Intake and Output Vital Signs (last 24 hours): Temp Pulse Resp BP Pulse Ox 98.1 F 66 20 116/79 93 L 06/10/18 09:00 06/10/18 11:15 06/10/18 09:00 06/10/18 11:15 06/10/18 09:00 Intake and Output: 06/10/18 06/10/18 06:59 18:59 Intake Total 1060 Balance 1060 - Medications Medications: Current Medications Acetaminophen (Tylenol 325mg Tab) 650 mg PO Q6 PRN PRN Reason: Pain, Mild (1-3) Last Admin: 06/10/18 02:05 Dose: 650 mg Amlodipine Besylate (Norvasc) 10 mg PO DAILY [facility] Last Admin: 06/10/18 11:15 Dose: 10 mg Dextrose (Dextrose 50% Inj) 0 ml IV STAT PRN; Protocol PRN Reason: Hypoglycemia Protocol Dextrose (Glutose 15) 0 gm PO ONCE PRN; Protocol PRN Reason: Hypoglycemia Protocol Docusate Sodium (Colace) 100 mg PO BID [facility] Last Admin: 06/10/18 09:36 Dose: 100 mg Glucagon (Glucagen Diagnostic Kit) 0 mg IM STAT PRN; Protocol PRN Reason: Hypoglycemia Protocol Meropenem 1 gm/ Sodium (Chloride) 100 mls @ 100 mls/hr IVPB Q8 [facility]; Protocol Last Admin: 06/10/18 09:38 Dose: 100 mls/hr Insulin Human Regular (Humulin R) 0 units SC ACHS [facility]; Protocol Last Admin: 06/10/18 06:40 Dose: Not Given Ketorolac Tromethamine (Toradol) 30 mg IVP Q6 PRN PRN Reason: Pain, severe (8-10) Last Admin: 06/09/18 15:37 Dose: 30 mg Ketorolac Tromethamine (Toradol) 15 mg IVP Q6 PRN PRN Reason: Pain, moderate (4-7) Last Admin: 06/10/18 09:39 Dose: 15 mg Lactulose (Enulose) 20 gm PO DAILY [facility] Last Admin: 06/10/18 09:36 Dose: 20 gm Lisinopril (Zestril) 20 mg PO DAILY [facility] Last Admin: 06/10/18 09:37 Dose: 20 mg Metronidazole (Flagyl) 500 mg PO Q8 [facility]; Protocol Last Admin: 06/10/18 09:35 Dose: 500 mg - Labs Labs: 06/09/18 04:30 06/09/18 04:30 - Constitutional Appears: Well - Head Exam Head Exam: ATRAUMATIC, NORMAL INSPECTION, NORMOCEPHALIC - Eye Exam Eye Exam: EOMI, Normal appearance, PERRL Pupil Exam: NORMAL ACCOMODATION, PERRL - ENT Exam ENT Exam: Mucous Membranes Moist, Normal Exam - Neck Exam Neck Exam: Full ROM, Normal Inspection. absent: Lymphadenopathy - Respiratory Exam Respiratory Exam: Clear to Ausculation Bilateral, NORMAL BREATHING PATTERN - Cardiovascular Exam Cardiovascular Exam: REGULAR RHYTHM, +S1, +S2. absent: Murmur - GI/Abdominal Exam GI & Abdominal Exam: Soft, Normal Bowel Sounds. absent: Tenderness - Rectal Exam Rectal Exam: Deferred - Exam Exam: NORMAL INSPECTION Bimanual exam: Adenexal Mass, Adnexal, Cervical Motion Tendernes, NORMAL BIMANUAL EXAM, Uterine Enlargement, Uterine Tenderness - Extremities Exam Extremities Exam: Full ROM, Normal Capillary Refill, Normal Inspection. absent: Joint Swelling, Pedal Edema - Back Exam Back Exam: NORMAL INSPECTION - Neurological Exam Neurological Exam: Alert, Awake, CN II-XII Intact, Normal Gait, Oriented x3 - Psychiatric Exam Psychiatric exam: Normal Affect, Normal Mood - Skin Skin Exam: Dry, Intact, Normal Color, Warm Assessment and Plan (1) Colitis Status: Acute (2) UTI (urinary tract infection) Status: Acute (3) UTI due to extended-spectrum beta lactamase (ESBL) producing Escherichia coli Status: Acute (4) DM type 2 (diabetes mellitus, type 2) Status: Chronic (5) HTN (hypertension) Status: Chronic - Assessment and Plan (Free Text) Assessment: 47 yo F with history of HTN, DM2, colitis, presenting to ED for evaluation of abdominal pain. Pain started about 10-14 days ago She also reports increased frequency of urination and burning with urination x 2 weeks. She returned from a trip to [place] last week, and reports she went to her PMD Dr. Chavis 4 days ago, who started her on Cipro and Flagyl for a suspected colitis, but medications have not been helpful in alleviating her symptoms. URINE culture from 06/04 positive for ESBL E. coli ID consulted because of this Anticipate 10-14 days rx
--- NOTE | 2018-06-10 14:09 | CP.PCM.DIS ---
<Torsten Pate - Last Filed: 06/10/18 14:29> Provider - Provider Date of Admission: 06/07/18 18:00 Attending physician: Funmilayo Aguirre DO Consults: 06/07/18 18:22 Infectious Disease Consult Stat Comment: Consulting Provider: Don Rae Consulting Physician: Don Rae Reason for Consult: MDR UTI Time Spent in preparation of Discharge (in minutes): 30 Diagnosis - Discharge Diagnosis (1) UTI due to extended-spectrum beta lactamase (ESBL) producing Escherichia coli Status: Acute (2) Colitis Status: Acute (3) Constipation Status: Chronic (4) DM type 2 (diabetes mellitus, type 2) Status: Chronic (5) HTN (hypertension) Status: Chronic Hospital Course - Lab Results Lab Results: Micro Results 06/07/18 18:00 Blood-Venous Blood Culture - Preliminary NO GROWTH AFTER 48 HOURS 06/07/18 18:00 Blood-Venous Blood Culture - Preliminary NO GROWTH AFTER 48 HOURS 06/07/18 20:00 Urine,Random Urine Culture - Final No Growth (<1,000 CFU/ML) Most Recent Lab Values WBC 5.4 K/uL (4.8-10.8) 06/09/18 04:30 RBC 4.17 Mil/uL (3.80-5.20) 06/09/18 04:30 Hgb 11.9 g/dL (12.0-16.0) L 06/09/18 04:30 Hct 35.7 % (34.0-47.0) 06/09/18 04:30 MCV 85.6 fl (81.0-99.0) 06/09/18 04:30 MCH 28.5 pg (27.0-31.0) 06/09/18 04:30 MCHC 33.3 g/dL (33.0-37.0) 06/09/18 04:30 RDW 14.8 % (11.5-14.5) H 06/09/18 04:30 Plt Count 290 K/uL (130-400) 06/09/18 04:30 MPV 9.6 fl (7.2-11.7) 06/07/18 18:22 Neut % (Auto) 50.3 % (50.0-75.0) 06/07/18 18:22 Lymph % (Auto) 39.9 % (20.0-40.0) 06/07/18 18:22 [place] % (Auto) 5.9 % (0.0-10.0) 06/07/18 18:22 Eos % (Auto) 2.9 % (0.0-4.0) 06/07/18 18:22 Baso % (Auto) 1.0 % (0.0-2.0) 06/07/18 18:22 Neut # (Auto) 3.3 K/uL (1.8-7.0) 06/07/18 18:22 Lymph # (Auto) 2.6 K/uL (1.0-4.3) 06/07/18 18: [place] # (Auto) 0.4 K/uL (0.0-0.8) 06/07/18 18: Eos # (Auto) 0.2 K/uL (0.0-0.7) 06/07/18 18: Baso # (Auto) 0.1 K/uL (0.0-0.2) 06/07/18 18:22 Sodium 140 mmol/l (132-148) 06/09/18 04:30 Potassium 4.3 MMOL/L (3.6-5.0) 06/09/18 04:30 Chloride 102 mmol/L (98-107) 06/09/18 04:30 Carbon Dioxide 26 mmol/L (22-30) 06/09/18 04:30 Anion Gap 16 (10-20) 06/09/18 04:30 BUN 22 mg/dl (7-17) H 06/09/18 04:30 Creatinine 0.8 mg/dl (0.7-1.2) 06/09/18 04:30 Est GFR ( Amer) > 60 06/09/18 04:30 Est GFR (Non-Af Amer) > 60 06/09/18 04:30 POC Glucose (mg/dL) 135 mg/dL (65-110) H 06/10/18 11:29 Random Glucose 148 mg/dL (65-105) H 06/09/18 04:30 Calcium 8.8 mg/dL (8.4-10.2) 06/09/18 04:30 Total Bilirubin 0.2 mg/dl (0.2-1.3) 06/07/18 18:22 AST 20 U/L (14-36) 06/07/18 18:22 ALT 21 U/L (9-52) 06/07/18 18:22 Alkaline Phosphatase 69 U/L (38-126) 06/07/18 18:22 Total Protein 8.1 G/DL (6.3-8.2) 06/07/18 18:22 Albumin 4.6 g/dL (3.5-5.0) 06/07/18 18:22 Globulin 3.5 gm/dL (2.2-3.9) 06/07/18 18:22 Albumin/Globulin Ratio 1.3 (1.0-2.1) 06/07/18 18:22 Urine Color Yellow (YELLOW) 06/09/18 22:15 Urine Clarity Slighty-cloudy (Clear) 06/09/18 22:15 Urine pH 5.0 (5.0-8.0) 06/09/18 22:15 Ur Specific [place] 1.028 (1.003-1.030) 06/09/18 22:15 Urine Protein Negative mg/dL (NEGATIVE) 06/09/18 22:15 Urine Glucose (UA) Neg mg/dL (NEGATIVE) 06/09/18 22:15 Urine Ketones Trace mg/dL (NEGATIVE) 06/09/18 22:15 Urine Blood Negative (NEGATIVE) 06/09/18 22:15 Urine Nitrate Negative (NEGATIVE) 06/09/18 22:15 Urine Bilirubin Negative (NEGATIVE) 06/09/18 22:15 Urine Urobilinogen 2.0 mg/dL (0.2-1.0) H 06/09/18 22:15 Ur Leukocyte Esterase Trace [place]/uL (Negative) 06/09/18 22:15 Urine RBC (Auto) 5 /hpf (0-3) H 06/09/18 22:15 Urine Microscopic WBC 1 /hpf (0-5) 06/09/18 22:15 Ur Squamous Epith Cells 7 /hpf (0-5) H 06/09/18 22:15 Urine Bacteria Rare (<OCC) 06/09/18 22:15 Hyaline Casts 0-2 /hpf (0-2) 06/09/18 22:15 - Hospital Course Hospital Course: 47 yo F with history of HTN, DM2, "Colitis", presenting to ED for evaluation of abdominal pain, dysuria, and subjective fevers, found to have recent UCx with ESBL E.Coli. Labs including CBC, CMP, UA, UCx, BCx ordered, Infectious disease Dr. Rae consulted for ESBL. Home medications resumed for DM and HTN. Patient started on Meropenum and Flagyl for ESBL and Colitis as well as Miralex for constipation. Urine culture negative. CT Abd/Pelvis on 06/07/18: Mural thickening of a segment of jejunum in the left abdomen and 1.7 cm left sided ovarian cyst. Patient tolerated diet well PO and had 2 BM on 06/09. Patient reported mild- moderate improvement in abdominal pain w/o nausea, vomiting, diarrhea, fever, chills. Vitals stable. Patient to be discharged to TCU for completion of 1 week IV antibiotics since patient not comfortable doing home IV Abx treatment. Discharge medications -Meropenum 1 gm IVPB Q8hr -Amlodipine 10 mg PO QD -Docusate 100 mg PO BID -Lactulose 20 gm PO daily -Lisinopril 20 mg PO daily -metformin 1000 mg PO BID -Metronidazole 500 mg PO Q8hr -Tramadl 50 mg Q6hr PRN Discharge Exam - Head Exam Head Exam: ATRAUMATIC, NORMAL INSPECTION, NORMOCEPHALIC - Eye Exam Eye Exam: EOMI, Normal appearance - ENT Exam ENT Exam: Mucous Membranes Moist - Respiratory Exam Respiratory Exam: Clear to PA & Lateral, NORMAL BREATHING PATTERN, UNREMARKABLE. absent: Rales, Rhonchi, Wheezes, Respiratory Distress - Cardiovascular Exam Cardiovascular Exam: REGULAR RHYTHM, +S1, +S2. absent: Systolic Murmur - GI/Abdominal Exam GI & Abdominal Exam: Normal Bowel Sounds, Soft. absent: Tenderness - Neurological Exam Neurological exam: Alert, Normal Gait, Oriented x3 - Psychiatric Exam Psychiatric exam: Normal Affect, Normal Mood - Skin Skin Exam: Dry, Intact, Normal Color, Warm Discharge Plan - Discharge Medications Prescriptions: Meropenem [Merrem IV] 1 gm IVPB Q8H 7 Days vial - Follow Up Plan Condition: STABLE Disposition: REHAB FACILITY/REHAB UNIT Instructions: Urinary Tract Infection, Adult (DC) Additional Instructions: discharge patient to tcu for iv antibiotics Referrals: Kulwant Chavis MD [Family Provider] - Don Rae MD [Staff Provider] - Keya Dow - Last Filed: 06/10/18 17:27> Provider - Provider Date of Admission: 06/07/18 18:00 Attending physician: Funmilayo Aguirre DO Consults: 06/07/18 18:22 Infectious Disease Consult Stat Comment: Consulting Provider: Don Rae Consulting Physician: Don Rae Reason for Consult: MDR UTI Diagnosis - Discharge Diagnosis (1) UTI due to extended-spectrum beta lactamase (ESBL) producing Escherichia coli Status: Acute (2) Colitis Status: Acute (3) Constipation Status: Chronic (4) DM type 2 (diabetes mellitus, type 2) Status: Chronic (5) HTN (hypertension) Status: Chronic Hospital Course - Lab Results Lab Results: Micro Results 06/07/18 18:00 Blood-Venous Blood Culture - Preliminary NO GROWTH AFTER 48 HOURS 06/07/18 18:00 Blood-Venous Blood Culture - Preliminary NO GROWTH AFTER 48 HOURS 06/07/18 20:00 Urine,Random Urine Culture - Final No Growth (<1,000 CFU/ML) Most Recent Lab Values WBC 5.4 K/uL (4.8-10.8) 06/09/18 04:30 RBC 4.17 Mil/uL (3.80-5.20) 06/09/18 04:30 Hgb 11.9 g/dL (12.0-16.0) L 06/09/18 04:30 Hct 35.7 % (34.0-47.0) 06/09/18 04:30 MCV 85.6 fl (81.0-99.0) 06/09/18 04:30 MCH 28.5 pg (27.0-31.0) 06/09/18 04:30 MCHC 33.3 g/dL (33.0-37.0) 06/09/18 04:30 RDW 14.8 % (11.5-14.5) H 06/09/18 04:30 Plt Count 290 K/uL (130-400) 06/09/18 04:30 MPV 9.6 fl (7.2-11.7) 06/07/18 18:22 Neut % (Auto) 50.3 % (50.0-75.0) 06/07/18 18: Lymph % (Auto) 39.9 % (20.0-40.0) 06/07/18 18:22 [place] % (Auto) 5.9 % (0.0-10.0) 06/07/18 18:22 Eos % (Auto) 2.9 % (0.0-4.0) 06/07/18 18: Baso % (Auto) 1.0 % (0.0-2.0) 06/07/18 18:22 Neut # (Auto) 3.3 K/uL (1.8-7.0) 06/07/18 18:22 Lymph # (Auto) 2.6 K/uL (1.0-4.3) 06/07/18 18:22 [place] # (Auto) 0.4 K/uL (0.0-0.8) 06/07/18 18:22 Eos # (Auto) 0.2 K/uL (0.0-0.7) 06/07/18 18: Baso # (Auto) 0.1 K/uL (0.0-0.2) 06/07/18 18:22 Sodium 140 mmol/l (132-148) 06/09/18 04:30 Potassium 4.3 MMOL/L (3.6-5.0) 06/09/18 04:30 Chloride 102 mmol/L (98-107) 06/09/18 04:30 Carbon Dioxide 26 mmol/L (22-30) 06/09/18 04:30 Anion Gap 16 (10-20) 06/09/18 04:30 BUN 22 mg/dl (7-17) H 06/09/18 04:30 Creatinine 0.8 mg/dl (0.7-1.2) 06/09/18 04:30 Est GFR ( Amer) > 60 06/09/18 04:30 Est GFR (Non-Af Amer) > 60 06/09/18 04:30 POC Glucose (mg/dL) 135 mg/dL (65-110) H 06/10/18 11:29 Random Glucose 148 mg/dL (65-105) H 06/09/18 04:30 Calcium 8.8 mg/dL (8.4-10.2) 06/09/18 04:30 Total Bilirubin 0.2 mg/dl (0.2-1.3) 06/07/18 18:22 AST 20 U/L (14-36) 06/07/18 18:22 ALT 21 U/L (9-52) 06/07/18 18:22 Alkaline Phosphatase 69 U/L (38-126) 06/07/18 18:22 Total Protein 8.1 G/DL (6.3-8.2) 06/07/18 18:22 Albumin 4.6 g/dL (3.5-5.0) 06/07/18 18:22 Globulin 3.5 gm/dL (2.2-3.9) 06/07/18 18:22 Albumin/Globulin Ratio 1.3 (1.0-2.1) 06/07/18 18:22 Urine Color Yellow (YELLOW) 06/09/18 22:15 Urine Clarity Slighty-cloudy (Clear) 06/09/18 22:15 Urine pH 5.0 (5.0-8.0) 06/09/18 22:15 Ur Specific [place] 1.028 (1.003-1.030) 06/09/18 22:15 Urine Protein Negative mg/dL (NEGATIVE) 06/09/18 22:15 Urine Glucose (UA) Neg mg/dL (NEGATIVE) 06/09/18 22:15 Urine Ketones Trace mg/dL (NEGATIVE) 06/09/18 22:15 Urine Blood Negative (NEGATIVE) 06/09/18 22:15 Urine Nitrate Negative (NEGATIVE) 06/09/18 22:15 Urine Bilirubin Negative (NEGATIVE) 06/09/18 22:15 Urine Urobilinogen 2.0 mg/dL (0.2-1.0) H 06/09/18 22:15 Ur Leukocyte Esterase Trace [place]/uL (Negative) 06/09/18 22:15 Urine RBC (Auto) 5 /hpf (0-3) H 06/09/18 22:15 Urine Microscopic WBC 1 /hpf (0-5) 06/09/18 22:15 Ur Squamous Epith Cells 7 /hpf (0-5) H 06/09/18 22:15 Urine Bacteria Rare (<OCC) 06/09/18 22:15 Hyaline Casts 0-2 /hpf (0-2) 06/09/18 22:15 Attending/Attestation - Attestation I have personally seen and examined this patient.: Yes I have fully participated in the care of the patient.: Yes I have reviewed all pertinent clinical information, including history, physical exam and plan: Yes Notes (Text): (1) UTI due to extended-spectrum beta lactamase (ESBL) producing Escherichia coli d/c to TCU to complete IV Meropenem treatment x 1 more week (2) Colitis CT scan of abd done on 06/04 showed stranding at the jejunum area cont Meropenem, and PO Flagyl (3) Constipation Status: Chronic Dulcolax Miralax (4) DM type 2 (diabetes mellitus, type 2) Status: Chronic Accucheck with coverage cont Metformin (5) HTN (hypertension) Status: Chronic cont Norvasc and Lisinopril
== END 2018-06-10 13:30 | DRG 690 ==
LOC: H.ER 16:58 → H.ERHOLD 18:00 → H.TEL 06-08 11:07
PROVIDERS: ADMIT Student in an Organized Health Care Education/Training Program; ATTEND Student in an Organized Health Care Education/Training Program
DX: N39.0 Urinary tract infection, site not specified (principal); K52.9 Noninfective gastroenteritis and colitis, unspecified; Z16.12 Extended spectrum beta lactamase (ESBL) resistance; B96.29 Other Escherichia coli [E. coli] as the cause of diseases classified elsewhere; K59.09 Other constipation; E11.9 Type 2 diabetes mellitus without complications; N83.202 Unspecified ovarian cyst, left side; I10 Essential (primary) hypertension; Z98.84 Bariatric surgery status; Z79.84 Long term (current) use of oral hypoglycemic drugs; Z87.442 Personal history of urinary calculi; Z90.710 Acquired absence of both cervix and uterus

== ENCOUNTER 2018-06-10 13:10 | Inpatient (IN) | payer OTHER ==
[2018-06-10 14:10] VITALS: BMI 33.0
[2018-06-10 17:10] LABS: HEMOGLOBIN 12.4 g/dL (12.0-16.0); MEAN CELL VOLUME 86.5 fl (81.0-99.0); MEAN CORPUSCULAR HEMOGLOBIN 28.5 pg (27.0-31.0); RBC 4.34 Mil/uL (3.80-5.20); RED CELL DISTRIBUTION WIDTH 14.7 % (11.5-14.5); WHITE BLOOD COUNT 7.9 K/uL (4.8-10.8)
[2018-06-10] MEDS ORDERED: Patient's Own Med (Meropenem [Merrem Iv] 1 GM) IVPB SCH (17:15)
[2018-06-10] MEDS: Meropenem 1 GM in Sodium Chloride 0.9% 100 ML IVPB SCH (20:47)
[2018-06-10] MEDS: Insulin Lispro (humaLOG) 100 Units/ml Inj SC SCH (21:12)
[2018-06-10] MEDS ORDERED: Insulin Regular 100 units/ml SC SCH (22:00)
[2018-06-10] MEDS ORDERED: Oxycodone/Acetaminophen 5/325 mg Tab PO ONE (22:56)
[2018-06-11] MEDS: Meropenem 1 GM in Sodium Chloride 0.9% 100 ML IVPB SCH ×3 (05:11→20:31)
[2018-06-11] MEDS: Insulin Lispro (humaLOG) 100 Units/ml Inj SC SCH ×4 (06:36→22:00)
--- NOTE | 2018-06-11 08:33 | RAD ---
Date of service: 06/11/2018 HISTORY: PPD refusal COMPARISON: Chest radiographs 08/03/2017. FINDINGS: LUNGS: No active pulmonary disease. PLEURA: No significant pleural effusion identified, no pneumothorax apparent. CARDIOVASCULAR: No aortic atherosclerotic calcification present. Cardiac silhouette appears prominent which is at least in part related to technical magnification. No pulmonary vascular congestion. OSSEOUS STRUCTURES: No significant abnormalities. VISUALIZED UPPER ABDOMEN: Normal. OTHER FINDINGS: None. IMPRESSION: Prominent cardiac silhouette. No pulmonary vascular congestion, infiltrate or pleural effusion bilaterally.
--- NOTE | 2018-06-11 12:55 | CP.PCM.HP ---
<Torsten Pate - Last Filed: 06/11/18 13:15> History of Present Illness - History of Present Illness History of Present Illness: 47 yo F with history of HTN, DM2, colitis admitted to TCU for completion of IV antibiotic therapy. Patient was admitted to [facility] for abdominal pain and diagnosed with ESBL and colitis. Patient treated with Meropenum and Flagyl. patient in TCU for completion of IV meropenum for 1 week. Today patient reports mild abdominal pain which has significantly improved and able to tolerate diet well PO. Reports intermittent abdominal pain and nausea but denies any vomiting, diarrhea, constipation, fever, chills, back pain, CP, SOB. CT Abd/Pelvis on 06/07/18: Mural thickening of a segment of jejunum in the left abdomen and 1.7 cm left sided ovarian cyst. Past Med hx: HTN, DM2 (A1c done 06/04/18 8.0), colitis, nephrolithiasis Past Surg hx: gastric bypass, hysterectomy Social: denies tobacco alcohol drugs Fam hx: noncontributory Allergies: nkda (tramadol listed but denies allergy, takes tramadol) Medications -Meropenum 1 gm IVPB Q8hr -Amlodipine 10 mg PO QD -Docusate 100 mg PO BID -Lactulose 20 gm PO daily -Lisinopril 20 mg PO daily -metformin 1000 mg PO BID -Metronidazole 500 mg PO Q8hr -Tramadl 50 mg Q6hr PRN Present on Admission - Present on Admission Any Indicators Present on Admission: No History of DVT/PE: No History of Uncontrolled Diabetes: No Urinary Catheter: No Decubitus Ulcer Present: No Review of Systems - Constitutional Constitutional: absent: Anorexia - EENT Eyes: absent: Change in Vision - Cardiovascular Cardiovascular: absent: Chest Pain, Chest Pain at Rest, Leg Edema, Palpitations - Respiratory Respiratory: absent: Cough, Dyspnea on Exertion, Wheezing - Gastrointestinal Gastrointestinal: Abdominal Pain, Nausea. absent: Constipation, Diarrhea, Dyspepsia, Vomiting - Genitourinary Genitourinary: Freq UTI. absent: Change in Urinary Stream, Dysuria, Urinary Incontinence, Urinary Frequency, Urinary Hesitance, Urinary Urgency Additional comments: H/O ESBL - Musculoskeletal Musculoskeletal: absent: Abnormal Gait, Back Pain - Neurological Neurological: absent: Behavioral Changes, Confusion Past Patient History - Past Medical History & Family History Past Medical History?: Yes - Past Social History Smoking Status: Never Smoked - CARDIAC Hx Cardiac Disorders: Yes Hx Hypertension: Yes - PULMONARY Hx Respiratory Disorders: No - NEUROLOGICAL Hx Vertigo: Yes - RENAL Hx Kidney Stones: Yes - ENDOCRINE/METABOLIC Hx Diabetes Mellitus Type 2: Yes - HEMATOLOGICAL/ONCOLOGICAL Hx Blood Disorders: Yes Hx Anemia: Yes - MUSCULOSKELETAL/RHEUMATOLOGICAL Hx Falls: No Hx Herniated Disk: Yes (Has had Lumbar Sx X2) Other/Comment: Right knee Sx -Arthroscopy due to Tendon Problems - GASTROINTESTINAL Hx Bowel Surgery: Yes (Gastric By-Pass X 2-2004, 2012) Hx Colitis: Yes Hx Diarrhea: Yes (Claims diarhea with Iron Tabs) - GENITOURINARY/GYNECOLOGICAL Hx Genitourinary Disorders: Yes - PSYCHIATRIC Hx Substance Use: No - SURGICAL HISTORY Hx Hysterectomy: Yes (08/28/16 [facility]) - ANESTHESIA Hx Anesthesia: Yes Hx Anesthesia Reactions: No Meds Allergies/Adverse Reactions: Allergies Allergy/AdvReac Type Severity Reaction Status Date / Time No Known Allergies Allergy Verified 06/10/18 18:32 Physical Exam - Constitutional Appears: Well, No Acute Distress - Head Exam Head Exam: ATRAUMATIC, NORMAL INSPECTION, NORMOCEPHALIC - Eye Exam Eye Exam: EOMI, Normal appearance Pupil Exam: NORMAL ACCOMODATION, PERRL - ENT Exam ENT Exam: Mucous Membranes Moist - Neck Exam Neck exam: Positive for: Normal Inspection - Respiratory Exam Respiratory Exam: Clear to Auscultation Bilateral, NORMAL BREATHING PATTERN. absent: Rales, Rhonchi, Wheezes, Respiratory Distress - Cardiovascular Exam Cardiovascular Exam: REGULAR RHYTHM, +S1, +S2. absent: Systolic Murmur - GI/Abdominal Exam GI & Abdominal Exam: Normal Bowel Sounds, Soft. absent: Distended, Tenderness - Extremities Exam Extremities exam: Negative for: calf tenderness, pedal edema, tenderness - Back Exam Back exam: NORMAL INSPECTION. absent: muscle spasm, tenderness - Neurological Exam Neurological exam: Alert, Normal Gait, Oriented x3 - Psychiatric Exam Psychiatric exam: Normal Affect, Normal Mood - Skin Skin Exam: Dry, Intact, Normal Color, Warm Results - Vital Signs Recent Vital Signs: Last Vital Signs Temp 97.5 F L 06/11/18 09:00 Pulse 73 06/11/18 09:05 Resp 98 H 06/11/18 09:05 BP 90/57 L 06/11/18 09:00 Pulse Ox 97 06/11/18 09:00 - Labs Result Diagrams: 06/10/18 17:02 Labs: Laboratory Results - last 24 hr 06/10/18 06/10/18 06/10/18 17:02 17:44 20:15 WBC 7.9 RBC 4.34 Hgb 12.4 Hct 37.5 MCV 86.5 MCH 28.5 MCHC 33.0 RDW 14.7 H Plt Count 304 POC Glucose (mg/dL) 194 H 195 H 06/11/18 06/11/18 05:15 11:25 WBC RBC Hgb Hct MCV MCH MCHC RDW Plt Count POC Glucose (mg/dL) 114 H 133 H Assessment & Plan - Assessment and Plan (Free Text) Assessment: 47 yo F with history of HTN, DM2, colitis admitted to TCU for completion of IV Meropenum therapy for ESBL. Plan: UTI due to extended-spectrum beta lactamase (ESBL) producing Escherichia coli - Continue 7 more days of IV meropenum Q8hr (day 1) Colitis -Improved -CT scan of abd done on 06/04 showed stranding at the jejunum area -cont Meropenem, added PO Flagyl Constipation -Chronic -Dulcolax DM type 2 (diabetes mellitus, type 2) -Chronic -Accucheck with coverage -restart Metformin HTN (hypertension) -Chronic -cont Norvasc and Lisinopril Diet -Consistent carb diet DVT prophylaxis -Ambulation - COntinue with OT PT <Funmilayo Aguirre - Last Filed: 06/12/18 17:38> Results - Vital Signs Recent Vital Signs: Last Vital Signs Temp 98.6 F 06/12/18 10:00 Pulse 60 06/12/18 10:00 Resp 20 06/12/18 10:00 BP 116/46 L 06/12/18 10:00 Pulse Ox 97 06/12/18 10:00 - Labs Result Diagrams: 06/12/18 12:54 Labs: Laboratory Results - last 24 hr 06/11/18 06/12/18 06/12/18 20:58 05:26 10:48 WBC RBC Hgb Hct MCV MCH MCHC RDW Plt Count MPV Neut % (Auto) Lymph % (Auto) [place] % (Auto) Eos % (Auto) Baso % (Auto) Neut # (Auto) Lymph # (Auto) [place] # (Auto) Eos # (Auto) Baso # (Auto) POC Glucose (mg/dL) 118 H 104 119 H 06/12/18 06/12/18 12:54 15:34 WBC 8.2 RBC 4.62 Hgb 13.1 Hct 39.5 MCV 85.5 MCH 28.5 MCHC 33.3 RDW 14.7 H Plt Count 350 MPV 9.5 Neut % (Auto) 54.6 Lymph % (Auto) 36.4 [place] % (Auto) 4.9 Eos % (Auto) 2.7 Baso % (Auto) 1.4 Neut # (Auto) 4.5 Lymph # (Auto) 3.0 [place] # (Auto) 0.4 Eos # (Auto) 0.2 Baso # (Auto) 0.1 POC Glucose (mg/dL) 187 H Attending/Attestation - Attestation I have personally seen and examined this patient.: Yes I have fully participated in the care of the patient.: Yes I have reviewed all pertinent clinical information: Yes Notes (Text): 06/12/18 17:38 Agree with findings and plan as above.
[2018-06-12] MEDS: Meropenem 1 GM in Sodium Chloride 0.9% 100 ML IVPB SCH ×3 (05:32→20:50)
[2018-06-12] MEDS: Insulin Lispro (humaLOG) 100 Units/ml Inj SC SCH ×5 (06:47→21:10)
[2018-06-12 12:58] LABS: BASO # 0.1 K/uL (0.0-0.2); BASO % 1.4 % (0.0-2.0); EOS # 0.2 K/uL (0.0-0.7); EOS % 2.7 % (0.0-4.0); HEMOGLOBIN 13.1 g/dL (12.0-16.0); LYMPH % 36.4 % (20.0-40.0); MEAN CELL VOLUME 85.5 fl (81.0-99.0); MEAN CORPUSCULAR HEMOGLOBIN 28.5 pg (27.0-31.0); MEAN CORPUSCULAR HGB CONC 33.3 g/dL (33.0-37.0); MEAN PLATELET VOLUME 9.5 fl (7.2-11.7); MONO # 0.4 K/uL (0.0-0.8); MONO % 4.9 % (0.0-10.0); NEUT # 4.5 K/uL (1.8-7.0); NEUT % 54.6 % (50.0-75.0); NRBC % 0.1 % (0.0-0.0); RBC 4.62 Mil/uL (3.80-5.20); RED CELL DISTRIBUTION WIDTH 14.7 % (11.5-14.5); WHITE BLOOD COUNT 8.2 K/uL (4.8-10.8)
[2018-06-12] MEDS: Simethicone 80 mg Chewtab PO SCH ×2 (13:52→16:52)
[2018-06-12] MEDS: Pantoprazole 40 mg EC Tab PO SCH (13:52)
--- NOTE | 2018-06-12 14:03 | CP.PCM.CON ---
History of Present Illness - History of Present Illness History of Present Illness: 47 yo F with history of HTN, DM2, colitis, presenting to ED for evaluation of abdominal pain. Pain started about 10-14 days ago She also reports increased frequency of urination and burning with urination x 2 weeks. She returned from a trip to [place] last week, and reports she went to her PMD Dr. Chavis 4 days ago, who started her on Cipro and Flagyl for a suspected colitis, but medications have not been helpful in alleviating her symptoms. URINE culture from 06/04 positive for ESBL E. coli ID consulted because of this Past Med hx: HTN, DM2 (A1c done 06/04/18 8.0), colitis, nephrolithiasis Past Surg hx: gastric bypass, hysterectomy Social: denies tobacco alcohol drugs Fam hx: noncontributory Allergies: nkda Review of Systems - Review of Systems All systems: reviewed and no additional remarkable complaints except - Constitutional Constitutional: As Per HPI - EENT Eyes: absent: As Per HPI, Blind Spots, Blurred Vision, Change in Vision, Decreased Night Vision, Diplopia, Discharge, Dry Eye, Exophthalmos, Floaters, Irritation, Itchy Eyes, Loss of Peripheral Vision, Pain, Photophobia, Requires Corrective Lenses, Sees Flashes, Spots in Vision, Tunnel Vision, Other Visual Disturbances, Loss of Vision, Other Ears: absent: As Per HPI, Decreased Hearing, Ear Discharge, Ear Pain, Tinnitus, Abnormal Hearing, Disequilibrium, Dizziness, Other Nose/Mouth/Throat: absent: As Per HPI, Epistaxis, Nasal Congestion, Nasal Discharge, Nasal Obstruction, Nasal Trauma, Nose Pain, Post Nasal Drip, Sinus Pain, Sinus Pressure, Bleeding Gums, Change in Voice, Dental Pain, Dry Mouth, Dysphagia, Halitosis, Hoarsness, Lip Swelling, Mouth Lesions, Mouth Pain, Odynophagia, Sore Throat, Throat Swelling, Tongue Swelling, Facial Pain, Neck Pain, Neck Mass, Other - Breasts Breasts: absent: As Per HPI, Change in Shape, Mass, Pain, Nipple Discharge, Nipple Inversion, Skin Changes, Swelling, Other - Cardiovascular Cardiovascular: absent: As Per HPI, Acrocyanosis, Chest Pain, Chest Pain at Rest, Chest Pain with Activity, Claudication, Diaphoresis, Dyspnea, Dyspnea on Exertion, Edema, Irregular Heart Rhythm, Pain Radiating to Arm/Neck/Jaw, Leg Ed wilmer, Leg Ulcers, Lightheadedness, Orthopnea, Palpitations, Paroxysmal Nocturnal Dyspnea, Pedal Edema, Radiating Pain, Rapid Heart Rate, Slow Heart Rate, Syncope, Other - Respiratory Respiratory: absent: As Per HPI, Cough, Dyspnea, Hemoptysis, Dyspnea on Exertio n, Wheezing, Snoring, Stridor, Pain on Inspiration, Chest Congestion, Excessive Mucous Production, Change in Mucous Color, Pain with Coughing, Other - Gastrointestinal Gastrointestinal: As Per HPI, Abdominal Pain - Genitourinary Genitourinary: As Per HPI, Urinary Frequency - Reproductive: Female Reproductive:Female: absent: As Per HPI, Amenorrhea, Amenorrhea/ Control, Currently Menstual, Cycle <21 Days, Cycle >35 Days, Cycle Variable, Menses 1-7 Days, Menses >/= 8 Days, Menses Variable, Cycle > 4 Weeks Between, No Menses for 6 Months, Heavy Menses, Light Menses, Normal Menses, Spotting Between Cycles, S/P Hysterectomy, Menopausal, Post Menopausal, Premenarche, Abnormal Vaginal Bleeding, Dysmenorrhea, Dyspareunia, Genital Lesions, Genital Pruritis, Pelvic Pain, Prolapse Symptoms, Sexual Dysfunction, Vaginal Discharge, Vaginal Dryness, Vaginal Odor, Vaginal Pruritis, Other - Menstruation Menstruation: absent: As Per HPI, Amenorrhea, Amenorrhea/ Control, Currently Menstual, Cycle <21 Days, Cycle >35 Days, Cycle Variable, Menses 1-7 Days, Menses >/= 8 Days, Menses Variable, Cycle > 4 Weeks Between, No Menses for 6 Months, Heavy Menses, Light Menses, Normal Menses, Spotting Between Cycles, S/P Hysterectomy, Menopausal, Post Menopausal, Premenarche, Abnormal Vaginal Bleeding, Dysmenorrhea, Other - Musculoskeletal Musculoskeletal: absent: As Per HPI, Abnormal Gait, Arthralgias, Atrophy, Back Pain, Deformity, Joint Swelling, Limited Range of Motion, Loss of Height, Muscle Cramps, Muscle Weakness, Myalgias, Neck Pain, Numbness, Radiating Pain into Limb, Stiffness, Tingling, Other - Integumentary Integumentary: absent: As Per HPI, Acne, Alopecia, Bleeding Lesions, Change in Hair, Change in Nails, Change in Pigmentation, Changing Lesions, Dry Skin, Erythema, Furuncle, Hirsutism, Lesions, New Lesions, Non-Healing Lesions, Photosensitivity, Pruritus, Rash, Skin Pain, Skin Ulcer, Sores, Striae, Swelling, Unusual Bruising, Wounds, Jaundice, Other - Neurological Neurological: absent: As Per HPI, Abnormal Gait, Abnormal Hearing, Abnormal Movements, Abnormal Speech, Behavioral Changes, Burning Sensations, Confusion, Convulsions, Disequilibrium, Dizziness, Numbness, Focal Weakness, Frequent Falls, Headaches, Lack of Coordination, Loss of Vision, Memory Loss, Paresthesias, Radicular Pain, Restless Legs, Sensory Deficit, Syncope, Tingling, Tremor, Vertigo, Weakness, Other Visual Disturbances, Other - Psychiatric Psychiatric: absent: As Per HPI, Abnormal Sleep Pattern, Anhedonia, Anxiety, Auditory Hallucinations, Behavioral Changes, Change in Appetite, Change in Libido, Confusion, Depression, Difficulty Concentrating, Hallucinations, Homicidal Ideation, Hopelessness, Irritability, Memory Loss, Mood Swings, Panic Attacks, Paranoia, Suicidal Ideation, Visual Hallucinations, Tactile Hallucinations, Other - Endocrine Endocrine: absent: As Per HPI, Change in Body Appearance, Change in Libido, Cold Intolorance, Deepening of Voice, Excessive Sweating, Fatigue, Flushing, Heat Intolorance, Increase in Ring/Shoe/Hat Size, Palpitations, Polydipsia, Polyphagia, Polyuria, Other - Hematologic/Lymphatic Hematologic: absent: As Per HPI, Easy Bleeding, Easy Bruising, Lymphadenopathy, Other Past Patient History - Past Medical History & Family History Past Medical History?: Yes - Past Social History Smoking Status: Never Smoked - CARDIAC Hx Cardiac Disorders: Yes Hx Hypertension: Yes - PULMONARY Hx Respiratory Disorders: No - NEUROLOGICAL Hx Vertigo: Yes - RENAL Hx Kidney Stones: Yes - ENDOCRINE/METABOLIC Hx Diabetes Mellitus Type 2: Yes - HEMATOLOGICAL/ONCOLOGICAL Hx Blood Disorders: Yes Hx Anemia: Yes - MUSCULOSKELETAL/RHEUMATOLOGICAL Hx Falls: No Hx Herniated Disk: Yes (Has had Lumbar Sx X2) Other/Comment: Right knee Sx -Arthroscopy due to Tendon Problems - GASTROINTESTINAL Hx Bowel Surgery: Yes (Gastric By-Pass X 2-2004, 2012) Hx Colitis: Yes Hx Diarrhea: Yes (Claims diarhea with Iron Tabs) - GENITOURINARY/GYNECOLOGICAL Hx Genitourinary Disorders: Yes - PSYCHIATRIC Hx Substance Use: No - SURGICAL HISTORY Hx Hysterectomy: Yes (08/28/16 [facility]) - ANESTHESIA Hx Anesthesia: Yes Hx Anesthesia Reactions: No Meds Allergies/Adverse Reactions: Allergies Allergy/AdvReac Type Severity Reaction Status Date / Time No Known Allergies Allergy Verified 06/10/18 18:32 - Medications Medications: Current Medications Acetaminophen (Tylenol 325mg Tab) 650 mg PO Q4 PRN PRN Reason: Pain, Mild (1-3) Last Admin: 06/12/18 12:32 Dose: 650 mg Acetaminophen (Tylenol 325mg Tab) 650 mg PO Q6 PRN PRN Reason: Pain, Mild (1-3) Amlodipine Besylate (Norvasc) 10 mg PO DAILY [facility] Last Admin: 06/12/18 08:35 Dose: 10 mg Docusate Sodium (Colace) 100 mg PO BID [facility] Last Admin: 06/12/18 08:37 Dose: Not Given Meropenem 1 gm/ Sodium (Chloride) 100 mls @ 100 mls/hr IVPB Q8@0500,1300,2100 [facility]; Protocol Last Admin: 06/12/18 12:14 Dose: 100 mls/hr Insulin Human Lispro (Humalog) 0 units SC ACHS [facility]; Protocol Last Admin: 06/12/18 10:50 Dose: Not Given Lactulose (Enulose) 20 gm PO DAILY [facility] Last Admin: 06/12/18 08:36 Dose: Not Given Lisinopril (Zestril) 20 mg PO DAILY [facility] Last Admin: 06/12/18 08:35 Dose: 20 mg Metformin HCl (Glucophage) 1,000 mg PO BIDWM [facility] Pantoprazole Sodium (Protonix Ec Tab) 40 mg PO DAILY [facility] Last Admin: 06/12/18 13:52 Dose: 40 mg Simethicone (Mylicon Chew Tab) 80 mg PO Q8 [facility] Last Admin: 06/12/18 13:52 Dose: 80 mg Physical Exam - Constitutional Appears: No Acute Distress, Chronically Ill - Head Exam Head Exam: ATRAUMATIC, NORMOCEPHALIC - Eye Exam Eye Exam: absent: Scleral icterus Pupil Exam: NORMAL ACCOMODATION - ENT Exam ENT Exam: Mucous Membranes Dry, Normal External Ear Exam - Neck Exam Neck exam: Negative for: Lymphadenopathy - Respiratory Exam Respiratory Exam: Decreased Breath Sounds, Rhonchi - Cardiovascular Exam Cardiovascular Exam: REGULAR RHYTHM, +S1, +S2 - GI/Abdominal Exam GI & Abdominal Exam: Diminished Bowel Sounds, Distended, Guarding, Soft, Tenderness. absent: Organomegaly, Pulsatile Mass, Rebound, Rigid - Rectal Exam Rectal Exam: Deferred - Exam Exam: NORMAL INSPECTION - Extremities Exam Extremities exam: Positive for: pedal pulses present. Negative for: calf tenderness, pedal edema, tenderness - Back Exam Back exam: absent: CVA tenderness (L), CVA tenderness (R), paraspinal tenderness - Neurological Exam Neurological exam: Alert, CN II-XII Intact, Oriented x3, Reflexes Normal - Psychiatric Exam Psychiatric exam: Depressed - Skin Skin Exam: Dry Results - Vital Signs Recent Vital Signs: Last Vital Signs Temp 98.6 F 06/12/18 10:00 Pulse 60 06/12/18 10:00 Resp 20 06/12/18 10:00 BP 116/46 L 06/12/18 10:00 Pulse Ox 97 06/12/18 10:00 - Labs Result Diagrams: 06/12/18 12:54 Labs: Laboratory Results - last 24 hr 06/11/18 06/11/18 06/12/18 16:40 20:58 05:26 WBC RBC Hgb Hct MCV MCH MCHC RDW Plt Count MPV Neut % (Auto) Lymph % (Auto) Tompkins % (Auto) Eos % (Auto) Baso % (Auto) Neut # (Auto) Lymph # (Auto) [place]kins # (Auto) Eos # (Auto) Baso # (Auto) POC Glucose (mg/dL) 130 H 118 H 104 06/12/18 06/12/18 10:48 12:54 WBC 8.2 RBC 4.62 Hgb 13.1 Hct 39.5 MCV 85.5 MCH 28.5 MCHC 33.3 RDW 14.7 H Plt Count 350 MPV 9.5 Neut % (Auto) 54.6 Lymph % (Auto) 36.4 Tompkins % (Auto) 4.9 Eos % (Auto) 2.7 Baso % (Auto) 1.4 Neut # (Auto) 4.5 Lymph # (Auto) 3.0 Tompkins # (Auto) 0.4 Eos # (Auto) 0.2 Baso # (Auto) 0.1 POC Glucose (mg/dL) 119 H Assessment & Plan (1) Colitis Assessment and Plan: GI eval and follow up Status: Acute (2) UTI due to extended-spectrum beta lactamase (ESBL) producing Escherichia coli Status: Acute (3) DM type 2 (diabetes mellitus, type 2) Status: Chronic (4) HTN (hypertension) Status: Chronic - Assessment and Plan (Free Text) Assessment: cont iv antibiotics for ESBL
--- NOTE | 2018-06-12 14:11 | CP.PCM.PCO ---
<Torsten Pate - Last Filed: 06/12/18 14:11> Assessment & Plan - Assessment and Plan (Free Text) Assessment: Patient reporting LLQ pain, intermittent 8/10 which lasts for 5-10 mins and improves w/o any intervention. Pain is worsens by food and walking. Decrease appetite. Noted dark red blood in stool today. Denies any nausea, vomiting, diarrhea, fever, chills, dysuria or urinary complains. VSS On physical exam LLQ tenderness and epigastric tenderness noted. No rebound or guarding. No suprapubic tenderness. CVA neg. RRR, CTAB. No acute distress. A/P: CBC, Pantoprazole 40 daily, Simethicone 80 oziel. GI and pain Mx consult. <Funmilayo Aguirre - Last Filed: 06/12/18 17:35> Attending/Attestation - Attestation I have personally seen and examined this patient.: Yes I have fully participated in the care of the patient.: Yes I have reviewed all pertinent clinical information: Yes Notes (Text): 06/12/18 17:35 Agree with findings and plan as above.
[2018-06-12] MEDS: metroNIDAZOLE 500mg/100ml NS 100 ML IVPB SCH (16:51)
[2018-06-13] MEDS: metroNIDAZOLE 500mg/100ml NS 100 ML IVPB SCH ×3 (00:02→16:37)
[2018-06-13] MEDS: Simethicone 80 mg Chewtab PO SCH ×5 (00:02→16:40)
[2018-06-13] MEDS: Meropenem 1 GM in Sodium Chloride 0.9% 100 ML IVPB SCH ×3 (05:08→20:53)
[2018-06-13] MEDS: Insulin Lispro (humaLOG) 100 Units/ml Inj SC SCH ×4 (06:54→21:03)
--- NOTE | 2018-06-13 09:31 | CP.PCM.PN ---
Subjective - Date & Time of Evaluation Date of Evaluation: 06/13/18 Time of Evaluation: 11:30 - Subjective Subjective: Patient seen and examined bedside. All chart and clinical data reviewed . Care resumed . 47 y/o female with PMH DM , HTN admitted for ESBL E.Coli UTI She still complains of on and off left lower quadrant pain and right upper quadrant pain with eating She is hemodynamically stable, afebrile Repeat blood and urine cx with no growth Imaging showed no acute pathology Objective - Vital Signs/Intake and Output Vital Signs (last 24 hours): Temp Pulse Resp BP Pulse Ox 98.6 F 60 20 116/46 L 97 06/12/18 10:00 06/12/18 10:00 06/12/18 10:00 06/12/18 10:00 06/12/18 10:00 - Medications Medications: Current Medications Acetaminophen (Tylenol 325mg Tab) 650 mg PO Q4 PRN PRN Reason: Pain, Mild (1-3) Last Admin: 06/12/18 12:32 Dose: 650 mg Acetaminophen (Tylenol 325mg Tab) 650 mg PO Q6 PRN PRN Reason: Pain, Mild (1-3) Amlodipine Besylate (Norvasc) 10 mg PO DAILY [facility] Last Admin: 06/12/18 08:35 Dose: 10 mg Docusate Sodium (Colace) 100 mg PO BID [facility] Last Admin: 06/12/18 16:51 Dose: Not Given Meropenem 1 gm/ Sodium (Chloride) 100 mls @ 100 mls/hr IVPB Q8@0500,1300,2100 [facility]; Protocol Last Admin: 06/13/18 05:08 Dose: 100 mls/hr Metronidazole (Flagyl 500mg/100ml Ns) 100 mls @ 100 mls/hr IVPB Q8 [facility]; Protocol Last Admin: 06/13/18 00:02 Dose: 100 mls/hr Insulin Human Lispro (Humalog) 0 units SC ACHS [facility]; Protocol Last Admin: 06/13/18 06:54 Dose: Not Given Lactulose (Enulose) 20 gm PO DAILY [facility] Last Admin: 06/12/18 08:36 Dose: Not Given Lisinopril (Zestril) 20 mg PO DAILY [facility] Last Admin: 06/12/18 08:35 Dose: 20 mg Metformin HCl (Glucophage) 1,000 mg PO BIDWM [facility] Last Admin: 06/12/18 16:52 Dose: 1,000 mg Pantoprazole Sodium (Protonix Ec Tab) 40 mg PO DAILY [facility] Last Admin: 06/12/18 13:52 Dose: 40 mg Simethicone (Mylicon Chew Tab) 80 mg PO Q8 [facility] Last Admin: 06/13/18 00:02 Dose: 80 mg - Labs Labs: 06/12/18 12:54 - Constitutional Appears: Non-toxic, No Acute Distress - Head Exam Head Exam: ATRAUMATIC, NORMAL INSPECTION, NORMOCEPHALIC - Eye Exam Eye Exam: EOMI, Normal appearance, PERRL Pupil Exam: NORMAL ACCOMODATION - ENT Exam ENT Exam: Mucous Membranes Moist, Normal Exam - Neck Exam Neck Exam: Full ROM, Normal Inspection - Respiratory Exam Respiratory Exam: Clear to Ausculation Bilateral, NORMAL BREATHING PATTERN. a bsent: Rales, Rhonchi, Wheezes - Cardiovascular Exam Cardiovascular Exam: REGULAR RHYTHM, RRR, +S1, +S2. absent: JVD - GI/Abdominal Exam GI & Abdominal Exam: Soft, Normal Bowel Sounds. absent: Distended, Guarding, Tenderness, Hernia Additional comments: lower abdomen surgical scar upper mid abdomen surgical scar - Rectal Exam Rectal Exam: Deferred - Extremities Exam Extremities Exam: Full ROM, Normal Capillary Refill, Normal Inspection. absent: Pedal Edema - Back Exam Back Exam: NORMAL INSPECTION - Neurological Exam Neurological Exam: Alert, Awake, CN II-XII Intact, Oriented x3 - Psychiatric Exam Psychiatric exam: Normal Affect, Normal Mood - Skin Skin Exam: Dry, Intact, Normal Color, Warm Assessment and Plan - Assessment and Plan (Free Text) Assessment: 47 yo F with PMH HTN, DM2, colitis , history gastric bypass surgery , hysterectomy and tummy tuck was diagnosed with UTI secondary to ESBl E.Coli. patient transferred to TCU for continuation of IV antibiotics. CT abdomen, Abd/ pelvis US , transvaginal US showed no acute abdominal pathology , some mural thickening around jejenum suspicious for colitis Today she is day 6/10 of IV meropenem Still complains of on and off LLW abdominal pain and RUQ pain after eating 1. UTI due to ESBL Escherichia coli Afebrile and WBC - wnl Repeat blood and urine cx with no growth Id on consult continue IV Meropenem 09/[address] scan of abd done on 06/04 showed stranding at the jejunum area cont Meropenem and PO Flagyl will need evaluation by her [employer] after discharge for possible adhesions Had colonoscopy recently . can follow up with her GI Dr. Yang on discharge 3.Constipation Chronic Dulcolax hold for loose BM 4.DM type 2 (diabetes mellitus, type 2) Chronic ,controlled Accucheck with coverage on Metformin 5.HTN (hypertension) Chronic cont Norvasc and Lisinopril 6.DVT prophylaxis Ambulation continue with PT
[2018-06-13] MEDS: Pantoprazole 40 mg EC Tab PO SCH (10:08)
--- NOTE | 2018-06-13 17:28 | CP.PCM.CON ---
History of Present Illness - History of Present Illness History of Present Illness: 47 year old female admitted with urosepsis for abx rx and referred for evaluation of abdominal pain and watery diarrhea. Pt developed first episode of abdominal pain and diarrhea after a trip to her [place] and was treated with po abx by her PMD Sympoms after initial improvement with resolution of diarrhea recurred and pt seeked er evaluation. A ct scan of abdomen and pelvis showed a jejunal enteritis with minimal fluid around the bowel loop Review of Systems - Gastrointestinal Gastrointestinal: Abdominal Pain, Change in Bowel Habits, Diarrhea Past Patient History - Past Medical History & Family History Past Medical History?: Yes - Past Social History Smoking Status: Never Smoked - CARDIAC Hx Cardiac Disorders: Yes Hx Hypertension: Yes - PULMONARY Hx Respiratory Disorders: No - NEUROLOGICAL Hx Vertigo: Yes - RENAL Hx Kidney Stones: Yes - ENDOCRINE/METABOLIC Hx Diabetes Mellitus Type 2: Yes - HEMATOLOGICAL/ONCOLOGICAL Hx Blood Disorders: Yes Hx Anemia: Yes - MUSCULOSKELETAL/RHEUMATOLOGICAL Hx Falls: No Hx Herniated Disk: Yes (Has had Lumbar Sx X2) Other/Comment: Right knee Sx -Arthroscopy due to Tendon Problems - GASTROINTESTINAL Hx Bowel Surgery: Yes (Gastric By-Pass X 2-2004, 2012) Hx Colitis: Yes Hx Diarrhea: Yes (Claims diarhea with Iron Tabs) - GENITOURINARY/GYNECOLOGICAL Hx Genitourinary Disorders: Yes - PSYCHIATRIC Hx Substance Use: No - SURGICAL HISTORY Hx Hysterectomy: Yes (08/28/16 [facility]) - ANESTHESIA Hx Anesthesia: Yes Hx Anesthesia Reactions: No Meds Allergies/Adverse Reactions: Allergies Allergy/AdvReac Type Severity Reaction Status Date / Time No Known Allergies Allergy Verified 06/10/18 18:32 - Medications Medications: Current Medications Acetaminophen (Tylenol 325mg Tab) 650 mg PO Q4 PRN PRN Reason: Pain, Mild (1-3) Last Admin: 06/12/18 12:32 Dose: 650 mg Acetaminophen (Tylenol 325mg Tab) 650 mg PO Q6 PRN PRN Reason: Pain, Mild (1-3) Amlodipine Besylate (Norvasc) 10 mg PO DAILY [facility] Last Admin: 06/13/18 10:10 Dose: Not Given Docusate Sodium (Colace) 100 mg PO BID [facility] Last Admin: 06/13/18 16:25 Dose: Not Given Meropenem 1 gm/ Sodium (Chloride) 100 mls @ 100 mls/hr IVPB Q8@0500,1300,2100 [facility]; Protocol Last Admin: 06/13/18 12:28 Dose: 100 mls/hr Metronidazole (Flagyl 500mg/100ml Ns) 100 mls @ 100 mls/hr IVPB Q8 [facility]; Protocol Last Admin: 06/13/18 16:37 Dose: 100 mls/hr Insulin Human Lispro (Humalog) 0 units SC ACHS [facility]; Protocol Last Admin: 06/13/18 16:37 Dose: Not Given Lactulose (Enulose) 20 gm PO DAILY [facility] Last Admin: 06/13/18 10:07 Dose: Not Given Lisinopril (Zestril) 20 mg PO DAILY [facility] Last Admin: 06/13/18 10:10 Dose: Not Given Metformin HCl (Glucophage) 1,000 mg PO BIDWM [facility] Last Admin: 06/13/18 16:37 Dose: 1,000 mg Pantoprazole Sodium (Protonix Ec Tab) 40 mg PO DAILY [facility] Last Admin: 06/13/18 10:08 Dose: 40 mg Simethicone (Mylicon Chew Tab) 80 mg PO Q8 [facility] Last Admin: 06/13/18 16:40 Dose: Not Given Physical Exam - Constitutional Appears: No Acute Distress - Head Exam Head Exam: ATRAUMATIC, NORMAL INSPECTION, NORMOCEPHALIC - Eye Exam Eye Exam: EOMI, Normal appearance - ENT Exam ENT Exam: Normal Exam - Neck Exam Neck exam: Positive for: Normal Inspection - Respiratory Exam Respiratory Exam: Clear to Auscultation Bilateral, NORMAL BREATHING PATTERN - Cardiovascular Exam Cardiovascular Exam: REGULAR RHYTHM - GI/Abdominal Exam GI & Abdominal Exam: Normal Bowel Sounds, Soft, Tenderness - Rectal Exam Rectal Exam: Deferred - Exam External exam: NORMAL EXTERNAL EXAM - Extremities Exam Extremities exam: Positive for: full ROM, normal inspection, pedal pulses present - Back Exam Back exam: NORMAL INSPECTION - Neurological Exam Neurological exam: Alert, CN II-XII Intact, Normal Gait, Oriented x3, Reflexes Normal - Psychiatric Exam Psychiatric exam: Normal Affect, Normal Mood - Skin Skin Exam: Dry, Intact, Normal Color, Warm Results - Vital Signs Recent Vital Signs: Last Vital Signs Temp 98.5 F 06/13/18 08:00 Pulse 67 06/13/18 10:10 Resp 19 06/13/18 08:00 BP 93/59 L 06/13/18 10:10 Pulse Ox 98 06/13/18 08:00 - Labs Result Diagrams: 06/12/18 12:54 Labs: Laboratory Results - last 24 hr 06/12/18 06/13/18 06/13/18 20:21 05:51 12:22 POC Glucose (mg/dL) 123 H 112 H 133 H 06/13/18 16:33 POC Glucose (mg/dL) 115 H Assessment & Plan (1) Antibiotic-associated diarrhea Assessment and Plan: Stool culture for C Dif enteric pathogen O+P fecal lactoferrin, fecal calprotectin rule out postinfectious IBS-D rule out C dif colitis Status: Acute
[2018-06-14] MEDS: metroNIDAZOLE 500mg/100ml NS 100 ML IVPB SCH ×3 (00:24→17:18)
[2018-06-14] MEDS: Simethicone 80 mg Chewtab PO SCH ×3 (00:31→16:43)
[2018-06-14] MEDS: Meropenem 1 GM in Sodium Chloride 0.9% 100 ML IVPB SCH ×3 (04:46→20:32)
[2018-06-14] MEDS: Insulin Lispro (humaLOG) 100 Units/ml Inj SC SCH ×4 (06:33→22:04)
[2018-06-14] MEDS: Pantoprazole 40 mg EC Tab PO SCH (08:42)
[2018-06-14] MEDS: Lactobacillus Acidophilus 500 MU Cap PO SCH ×2 (08:44→17:19)
--- NOTE | 2018-06-14 18:30 | CP.PCM.PN ---
Subjective - Date & Time of Evaluation Date of Evaluation: 06/14/18 Time of Evaluation: 13:00 - Subjective Subjective: Pt is doing well, diarrhea resolved Objective - Vital Signs/Intake and Output Vital Signs (last 24 hours): Temp Pulse Resp BP Pulse Ox 98.6 F 61 20 93/58 L 96 06/13/18 21:37 06/14/18 08:42 06/13/18 21:37 06/14/18 08:42 06/13/18 21:37 - Medications Medications: Current Medications Acetaminophen (Tylenol 325mg Tab) 650 mg PO Q4 PRN PRN Reason: Pain, Mild (1-3) Last Admin: 06/12/18 12:32 Dose: 650 mg Acetaminophen (Tylenol 325mg Tab) 650 mg PO Q6 PRN PRN Reason: Pain, Mild (1-3) Amlodipine Besylate (Norvasc) 10 mg PO DAILY [facility] Last Admin: 06/14/18 08:42 Dose: Not Given Docusate Sodium (Colace) 100 mg PO BID [facility] Last Admin: 06/14/18 16:43 Dose: Not Given Meropenem 1 gm/ Sodium (Chloride) 100 mls @ 100 mls/hr IVPB Q8@0500,1300,2100 [facility]; Protocol Last Admin: 06/14/18 13:15 Dose: 100 mls/hr Metronidazole (Flagyl 500mg/100ml Ns) 100 mls @ 100 mls/hr IVPB Q8 [facility]; Protocol Last Admin: 06/14/18 17:18 Dose: 100 mls/hr Insulin Human Lispro (Humalog) 0 units SC ACHS [facility]; Protocol Last Admin: 06/14/18 16:25 Dose: Not Given Lactobacillus Acidophilus (Bacid Acidophilus) 1 cap PO BID [facility] Last Admin: 06/14/18 17:19 Dose: 1 cap Lactulose (Enulose) 20 gm PO DAILY [facility] Last Admin: 06/14/18 08:41 Dose: Not Given Lisinopril (Zestril) 20 mg PO DAILY [facility] Last Admin: 06/14/18 08:42 Dose: Not Given Metformin HCl (Glucophage) 1,000 mg PO BIDWM [facility] Last Admin: 06/14/18 17:19 Dose: 1,000 mg Ondansetron HCl (Zofran Inj) 4 mg IVP Q6 PRN PRN Reason: Nausea/Vomiting Last Admin: 06/14/18 18:12 Dose: 4 mg Pantoprazole Sodium (Protonix Ec Tab) 40 mg PO DAILY [facility] Last Admin: 06/14/18 08:42 Dose: 40 mg Simethicone (Mylicon Chew Tab) 80 mg PO Q8 [facility] Last Admin: 06/14/18 16:43 Dose: Not Given - Labs Labs: 06/12/18 12:54 Assessment and Plan (1) Antibiotic-associated diarrhea Status: Resolved - Assessment and Plan (Free Text) Assessment: Diarrhea and abdominal pain resolved, C dif negative Pt advised to follow uo with me as outpatient after discharge home.
[2018-06-15] MEDS: metroNIDAZOLE 500mg/100ml NS 100 ML IVPB SCH ×3 (01:09→16:15)
[2018-06-15] MEDS: Simethicone 80 mg Chewtab PO SCH ×3 (01:12→16:19)
[2018-06-15] MEDS: Meropenem 1 GM in Sodium Chloride 0.9% 100 ML IVPB SCH ×3 (05:23→20:34)
[2018-06-15 05:40] LABS: HEMOGLOBIN 12.5 g/dL (12.0-16.0); MEAN CELL VOLUME 86.3 fl (81.0-99.0); MEAN CORPUSCULAR HGB CONC 32.4 g/dL (33.0-37.0); RBC 4.46 Mil/uL (3.80-5.20); RED CELL DISTRIBUTION WIDTH 14.3 % (11.5-14.5); WHITE BLOOD COUNT 6.9 K/uL (4.8-10.8)
[2018-06-15] MEDS: Insulin Lispro (humaLOG) 100 Units/ml Inj SC SCH ×3 (06:37→16:19)
[2018-06-15 07:46] VITALS: RESP 20
[2018-06-15] MEDS: Lactobacillus Acidophilus 500 MU Cap PO SCH ×2 (09:24→16:16)
[2018-06-15] MEDS: Pantoprazole 40 mg EC Tab PO SCH (09:26)
[2018-06-15] MEDS ORDERED: Naproxen 500 MG TAB PO ONE (20:58)
[2018-06-15] MEDS ORDERED: Naproxen 500 MG TAB PO SCH (21:00)
[2018-06-16] MEDS: Insulin Lispro (humaLOG) 100 Units/ml Inj SC SCH ×5 (00:02→22:10)
[2018-06-16] MEDS: metroNIDAZOLE 500mg/100ml NS 100 ML IVPB SCH ×2 (00:33→09:04)
[2018-06-16] MEDS: Simethicone 80 mg Chewtab PO SCH ×3 (01:00→17:13)
[2018-06-16] MEDS: Meropenem 1 GM in Sodium Chloride 0.9% 100 ML IVPB SCH (05:15)
[2018-06-16] MEDS: Lactobacillus Acidophilus 500 MU Cap PO SCH ×2 (09:05→17:13)
[2018-06-16] MEDS: Pantoprazole 40 mg EC Tab PO SCH (09:07)
[2018-06-16] MEDS: Naproxen 500 MG TAB PO PRN (14:08)
[2018-06-16 16:24] VITALS: O2SAT 99
[2018-06-17] MEDS: Simethicone 80 mg Chewtab PO SCH ×2 (02:20→08:08)
[2018-06-17] MEDS: Naproxen 500 MG TAB PO PRN (03:28)
[2018-06-17] MEDS: Insulin Lispro (humaLOG) 100 Units/ml Inj SC SCH ×2 (06:50→11:46)
[2018-06-17 07:45] VITALS: BP 96/64; TEMP 98.5
[2018-06-17] MEDS: Pantoprazole 40 mg EC Tab PO SCH (08:06)
[2018-06-17 08:08] VITALS: PULSE 87
[2018-06-17] MEDS: Lactobacillus Acidophilus 500 MU Cap PO SCH (08:10)
== END 2018-06-17 12:30 | disposition home or self-care (01) | DRG 690 ==
LOC: H.TCU 14:15
PROVIDERS: ADMIT Student in an Organized Health Care Education/Training Program; ATTEND Student in an Organized Health Care Education/Training Program
PROC: 3E03329 Introduction of Other Anti-infective into Peripheral Vein, Percutaneous Approach (ICD-10-PCS; principal; 2018-06-10)
PROC: F07Z9FZ Gait Training/Functional Ambulation Treatment using Assistive, Adaptive, Supportive or Protective Equipment (ICD-10-PCS; 2018-06-10)
PROC: F08Z4FZ Home Management Treatment using Assistive, Adaptive, Supportive or Protective Equipment (ICD-10-PCS; 2018-06-10)
PROC: F07M6FZ Therapeutic Exercise Treatment of Musculoskeletal System - Whole Body using Assistive, Adaptive, Supportive or Protective Equipment (ICD-10-PCS; 2018-06-11)
DX: N39.0 Urinary tract infection, site not specified (principal); K52.1 Toxic gastroenteritis and colitis; B96.20 Unspecified Escherichia coli [E. coli] as the cause of diseases classified elsewhere; Z16.12 Extended spectrum beta lactamase (ESBL) resistance; T36.8X5A Adverse effect of other systemic antibiotics, initial encounter; K59.09 Other constipation; E11.9 Type 2 diabetes mellitus without complications; I10 Essential (primary) hypertension; Z79.84 Long term (current) use of oral hypoglycemic drugs; Z87.442 Personal history of urinary calculi; Z98.84 Bariatric surgery status; Z90.710 Acquired absence of both cervix and uterus; Y92.239 Unspecified place in hospital as the place of occurrence of the external cause